=== PATIENT | male | born 1945 | race Caucasian/White ===

== ENCOUNTER 2024-07-31 10:47 | Outpatient (AMB) | payer MEDICARE, SELFPAY ==
--- NOTE | 2024-07-31 10:51 | MHC.PC.OV ---
Vital Signs 07/31/24 11:05 07/31/24 11:37 Height 5 ft 9 in Weight 198 lb 8 oz BMI 29.3 BP 155/78 H 146/70 H Blood Pressure Location Rt brachial Lt brachial Position Sitting Sitting Respiration 16 Pulse 55 56 Pulse Source Pulse Oximeter Temp 98.1 F Temp Source Oral Pulse Oximetry (%) 99 Oxygen Delivery Method Room Air Intake Visit Reasons: [employer]- HTN med Intake Note: patient here for new patient visit. patient needs HTN medication Special Client Bus Driver Required: No Accompanied by: Spouse Allergies lisinopril Allergy (Intermediate, Verified 08/07/24 10:03) caugh Penicillins Allergy (Intermediate, Verified 08/07/24 10:03) Swelling Tobacco use date assessed: 07/31/24 Fall risk assessment: No Falls in past year Last assessed Fall Risk: 07/31/24 Dental Screening Dental Screen Date: 07/31/24 Did you have a dental visit in the last 12 months?: Yes Did you have a dental problem in the last 6 months where you did not have access to dental care?: No Was dental information given to patient?: Patient has dentist HPI HPI Comments History of Present Illness Details 79-year-old male, accompanied by his , presents to establish care. He admits to taking his medications as prescribed without adverse reactions. He brought a log of his home blood pressure readings in the last 4 days, which are between 118-121/48-54. Prior PCP? - [facility] Last office visit - Med review 05/2024 Last CPE - Over a year Last labs - He had CBC and CMP done in 02/24/2024 (he brought a copy which are reviewed/unremarkable, except slightly elevated glucose) Acute issue(s) - None Past Medical History - HTN, HLD, aortic root aneurysm, CVA (09/16/2023), bilat corotid stenosis, heart murmur, arthritis right hand, prostate cancer, myopia, cataract both eyes Surgical History - Right carotid endarterectomy, left hand surgery (left 4th digit fx repair and left hand dupuytren contraction), prostatectomy 2007, cataract removal with insertion of prosthetic lens Family History - Dad: Hypertension, Parkinson disease, mental illness - Mom: Cardiovascular disease, hypertension, diabetes, hyperlipidemia - PGF: Cardiovascular disease Social History - Nonsmoker. Does not vape. Drinks 2 glasses of wine daily. Denies recreational drug use - Has been making healthy dietary choices. Exercises routinely. Generally sleep well Health maintenance - Last eye exam was in 04/[address] Nice. He will sign a release for his PCP to obtain his ophthalmology record - Last dental visit was over a year ago; encouraged to schedule an appointment with his dentist for routine dental care. - He notes that his last Tdap was 2 years ago - He notes that he is up-to-date on the shingle and pneumonia vaccines - He notes that he is up-to-date on the flu vaccine - Last colonoscopy was in 04/25/2007: normal, recommendation to repeat in 10 years. Last Cologuard was 2 years ago: normal. Colonoscopy ordered as requested Specialists Dr. Cook, [facility] Cardiology Dr. Meng, [facility] Vascular Surgery [facility] Medical History (Updated 08/07/24 @ 10:05 by Janelle Correa CNP) Left hand fracture Schatzki's ring Prostate cancer History of gastroesophageal reflux (GERD) Arthritis Heart disease Stroke (cerebrum) High cholesterol High blood pressure Surgical History (Updated 07/31/24 @ 11:29 by Jessie Zaragoza MA) H/O cataract removal with insertion of prosthetic lens History of prostatectomy History of carotid endarterectomy Family History (Updated 07/31/24 @ 11:45 by Jessie Zaragoza MA) Brother Asthma Father High blood pressure FH: mental illness Parkinson disease Mother High blood pressure High cholesterol Diabetes Cardiovascular disease Paternal Grandfather Cardiovascular disease Social History Housing: House Patient Tobacco Use Status: Never used Tobacco e-Cigarette/Vaping Use: Never Used Second Hand Smoke Exposure: No service: No Current occupational status: retired Current occupational exposures/hazards: No Cognitive needs: No Hearing needs: No Vision needs: Yes Questionnaire PHQ-9 Over the last 2 weeks, how often have you been bothered by any of the following problems? 1. Little interest or pleasure in doing things: not at all 2. Feeling down, depressed, or hopeless: not at all 3. Trouble falling or staying asleep, or sleeping too much: several days 4. Feeling tired or having little energy: not at all 5. Poor appetite or overeating: not at all 6. Feeling bad about yourself - or that you are a failure or have let yourself or your family down: not at all 7. Trouble concentrating on things, such as reading the newspaper or watching television: not at all 8. Moving or speaking so slowly that other people could have noticed. Or the opposite - being so fidgety or restless that you have been moving around a lot more than usual: not at all 9. Thoughts that you would be better off or of hurting yourself in some way: not at all Total score: 1 Depression Screening Interpretation: Negative Depression Screening Done: Yes 69847 - PHQ-9 Billing: Yes Source: Developed by Drs. Erasmo Oliva, Kristi Herrera, Brice Banks and colleagues, with an educational wendy from [employer]. Thrive Questionnaire Date Thrive assessed: 07/31/24 I am a: Patient What is your living situation today?: I have a steady place to live Within the past 12 months, did the food you bought not last and you didn't have the money to get more?: Sometimes True Within the past 12 months, did you worry whether your food would run out before you got money to buy more?: Never true Do you have trouble paying for medicines?: No Do you have trouble getting transportation to medical appointments?: No Do you have trouble paying your heating and electricity bill?: No Do you have trouble taking care of your child, family member or friend?: No Do you have trouble with day-to-day activities such as bathing, preparing meals, shopping, managing finances, etc.?: No Are you currently unemployed and looking for a job?: No Are you interested in more education?: Yes Please select the resources that you would like help with: None Currently or been in a relationship where the following occur: No concerns reported THRIVE Score: 1 AUDIT C Alcohol Use Questionnaire (AUDIT-C) 1. How often do you have a drink containing alcohol?: 4 or more times a week 2. How many drinks containing alcohol do you have on a typical day when you are drinking?: 1 or 2 3. How often do you have six or more drinks on one occasion?: Never Total Score: 4 Score Reviewed/Action Taken: Yes MARCELINO-7 AMB Questionnaire MARCELINO-7 Date MARCELINO - 7 assessed: 07/31/24 Feeling nervous, anxious, or on edge: 0 = Not at all Not being able to stop or control worryin = Not at all Worrying too much about different things: 0 = Not at all Trouble relaxin = Not at all Being so restless that it is hard to sit still: 0 = Not at all Becoming easily annoyed or irritable: 1 = Several days Feeling afraid as if something awful might happen: 0 = Not at all Total MARCELINO-7 score (0-4 normal; 5-9 mild; 10-14 moderate; 15-21 severe): 1 Source: Developed by Drs. Erasmo Oliva, Kristi Herrera, Brice Banks and colleagues, with an educational wendy from [employer]. MARCELINO-7 Assessment Billing MARCELINO-7 Assessment Tool: MARCELINO-7 Assessment 91560 Review of Systems Const Details: Const Denies chills, Denies fatigue, Denies fever(s), Denies headache(s) and Denies weakness ENT Denies dizziness and Denies headache(s) Card Denies chest pain, Denies lightheadedness, Denies dyspnea and Denies other (Palpitations) Resp Denies cough, Denies dyspnea, Denies wheezing and Denies other ( shortness of breath) GI Denies abdominal pain, Denies melena, Denies hematochezia, Denies change in bowel habits, Denies dyspepsia and Denies nausea Denies hematuria and Denies dysuria Musc Denies abnormal gait, Denies myalgias, Denies arthralgias, Denies numbness and Denies tingling Skin/Breast Denies rash, Denies unusual bruising and Denies wounds Neuro Denies abnormal gait, Denies dizziness, Denies headache(s), Denies memory loss, Denies numbness, Denies Sensory deficit (Neuro), Denies tingling and Denies weakness Psych Denies anxiety, Denies depression, Denies memory loss Endo Denies cold intolerance, Denies fatigue, Denies heat intolerance, Denies polydipsia and Denies polyuria Aller/Immun Denies wheezing Physical exam (Primary Care) Vital Signs: Last Vital Signs Temp 98.1 F 07/31/24 11:05 Pulse 56 07/31/24 11:37 Resp 16 07/31/24 11:05 BP 146/70 H 07/31/24 11:37 Pulse Ox 99 07/31/24 11:05 Oxygen Delivery Method Room Air 07/31/24 11:05 BMI result Body Mass Index 29.3 Tobacco/Smoking Status: Tobacco use Status Tobacco use date assessed 07/31/24 07/31/24 11:05 Patient Tobacco Use Status Never used Tobacco 07/31/24 11:05 e-Cigarette/Vaping Use Never Used 07/31/24 11:05 PHQ-9: PHQ-9 Score PHQ-9: Total score 1 08/06/24 16:01 Depression Screening Interpretation: Negative Thrive Assessment: Date of Thrive Assessment Date Thrive assessed 07/31/24 07/31/24 10:53 Currently or been in a relationship where the following occur: No concerns reported Const Other: General: no acute distress and well developed Nutritional Appearance: well nourished Orientation/consciousness: patient oriented x3 HENMT Head: Yes normocephalic and Yes atraumatic Eyes General: appearance normal, both eyes and all related structures Pupils: Equal, round and reactive pupils present EOM: EOMs intact bilaterally Resp Effort & Inspection: normal respiratory effort Auscultation: clear to auscultation bilaterally Cardio Rate: regular rate Rhythm: regular rhythm Heart sounds: S1 normal heart sound present, S2 normal heart sound present, no gallops, positive murmurs and no rubs GI Palpation (GI): No Abdominal aortic bruit present, Soft to palpation, nontender, No hepatosplenomegaly present and No Rebound tenderness present Auscultation: normal bowel sounds General: Yes no CVA tenderness Back/Spine/Pelvis Back: no CVA tenderness Cervical Spine: cervical ROM normal and No Cervical spine tenderness Thoracic/Lumbar Spine: thoraco-lumbar ROM normal, No pain with thoraco-lumbar ROM, No thoracic spinal tenderness and No lumbar spinal tenderness Extrem General: Yes normal to inspection, No edema and No calf tenderness Skin General: warm and dry. Normal skin color. Normal skin turgor Lesions: no lesions Rashes: no rashes Trauma: no lacerations or abrasions Wounds: no wounds Nails: normal Neuro General: patient oriented x3, gait normal and no focal neuro deficit Cranial nerves: Yes Equal, round and reactive pupils present Cognition (Neuro): normal cognition Gait exam (Neuro): Normal gait present Sensory Exam: No Sensory deficit (Neuro) Psych Appearance: grossly normal Affect: normal affect Attitude: cooperative Thought process: Normal thought process present Coding Level of Care Code New Pt Level 4 (48830) Diagnoses High blood pressure I10 Heart disease I51.9 Colon cancer screening Z12.11 Myopia of both eyes H52.13 Laboratory tests ordered as part of a complete physical exam (CPE) Z00.00 Additional Codes MARCELINO-7 Assessment Billing - MARCELINO-7 Assessment Tool: MARCELINO-7 Assessment 29144 ([id number]) PHQ-9 - 55238 - PHQ-9 Billing: Yes ([id number]) Assessment & Plan Assessment & Plan (1) High blood pressure: Code(s): I10 - Essential (primary) hypertension Category: Medical Plan: Resting blood pressure is 146/70, above goal of less than 130/80. Heart rate is 56. His home blood pressure readings in the past 4 days between 118-121/48-54 Will increase losartan to 75 mg daily; advised to take as prescribed. Continue to take metoprolol and isosorbide mononitrate as prescribed. Routine exercise and low-sodium diet encouraged. Follow-up in 1 week for hypertension and labs reviewed. Return sooner with symptoms or concerns. Verbalized understanding and agreed with the plan. (2) Heart disease: Code(s): I51.9 - Heart disease, unspecified Category: Medical Plan: History of aortic root aneurysm, bilat corotid stenosis, murmur, and right carotid endarterectomy. Continue current treatment regimen. Followed by Cardiology and vascular surgery. (3) Colon cancer screening: Code(s): Z12.11 - Encounter for screening for malignant neoplasm of colon Category: Medical Plan: Last colonoscopy was in 04/25/2007: normal, recommendation to repeat in 10 years. Last Cologuard was 2 years ago: normal. Colonoscopy ordered as requested. (4) Myopia of both eyes: Code(s): H52.13 - Myopia, bilateral Category: Medical Plan: He wears prescription glasses. Eye exam is up-to-date. (5) Laboratory tests ordered as part of a complete physical exam (CPE): Code(s): Z00.00 - Encounter for general adult medical examination without abnormal findings Category: Medical Plan: Fasting labs ordered as part of a complete physical exam. Advised to fast for at least 10 hours before getting labs drawn. May drink water Verbalized understanding and agreed with treatment plan. Orders: Orders Complete Blood Count Auto Diff 08/01/24 Z00.00 - Encounter for general adult medical examination without abnormal findings Comprehensive [place]. Panel Fast 08/01/24 Z00.00 - Encounter for general adult medical examination without abnormal findings Lipid Panel 08/01/24 Z00.00 - Encounter for general adult medical examination without abnormal findings PSA, Ultra Sensitive 08/01/24 Z00.00 - Encounter for general adult medical examination without abnormal findings Microalbumin, Random (w Creat) 08/01/24 Z00.00 - Encounter for general adult medical examination without abnormal findings TSH reflex Free T4 08/01/24 Z00.00 - Encounter for general adult medical examination without abnormal findings UA CC w/rflx Micro + Cult 08/01/24 Z00.00 - Encounter for general adult medical examination without abnormal findings Vitamin D 25-OH Total 08/01/24 Z00.00 - Encounter for general adult medical examination without abnormal findings Referrals Gastroenterology Referral Z12.11 - Encounter for screening for malignant neoplasm of colon Medications: New losartan Take with losartan 50 mg daily to equal 75 mg daily 25 mg PO DAILY 30 tabs 3RF 30 days
[2024-07-31 11:05] VITALS: BP 155/78; PULSE 55; RESP 16; TEMP 36.7; O2SAT 99; BMI 29.3
[2024-07-31 11:37] VITALS: BP 146/70; PULSE 56
--- OUTSIDE RECORDS SUMMARY | 2024-07-31 12:48 | XMS_ITS | Clinical Summary ---
Author Organization [facility] [address] [facility] Address [address] [place] [address] Phone Care Team Providers Care Chinese Medicine Practitioner Name Role Phone Ingrid Dia MD Primary Care Provider [phone] Allergies Active Allergy Reactions Criticality Noted Date Comments Ketoconazole 05/02/2024 Shampoo, caused ear lobes and eyelids to swell. Lisinopril Cough 05/19/2023 Penicillins 12/19/2006 rash joint swelling Medications nitroglycerin (NITROSTAT) 0.[address] 1 tablet (0.4 mg total) under the tongue every 5 (five) minutes if needed for chest pain. 10/26/2023 11/20/19 25 Active aspirin 81 mg EC tablet 1 TABLET DAILY Active atorvastatin (LIPITOR) 80 mg tablet Take 1 tablet (80 mg total) by mouth 1 (one) time each day. 90 each 1 02/24/2024 08/23/19 25 Active isosorbide mononitrate (IMDUR) 30 mg 24 hr tablet Take 1 tablet (30 mg total) by mouth 1 (one) time each day. 90 each 1 02/24/2024 08/23/19 25 Active metoprolol tartrate (LOPRESSOR) 25 mg tablet Take 1 tablet (25 mg total) by mouth 2 (two) times a day. 180 each 1 02/24/2024 08/23/19 25 Active pantoprazole (PROTONIX) 40 mg EC tablet Take 1 tablet (40 mg total) by mouth 1 (one) time each day before breakfast. Do not crush, chew, or split. 90 each 1 02/24/2024 08/23/19 25 Active losartan (Cozaar) 50 mg tablet Take 1 tablet (50 mg total) by mouth 1 (one) time each day. 90 each 1 02/24/2024 08/23/19 25 Active Active Problems Problem Noted Date Diagnosed Date Blood loss anemia 10/20/2023 Carotid artery stenosis 10/20/2023 CVA (cerebral vascular accident) (CMS/HCC V24, C MS/HCC V28) 10/20/2023 Overview (01/23/2024): Last Assessment & Plan: Seems as though his stroke coincides very well to the territory of his carotid stenosis. Low suspicion for cardioembolic phenomenon. Will review neurology's notes to determine long-term preventative therapy-specifically dual antiplatelet therapy versus monotherapy with Plavix versus monotherapy with aspirin. For now, continue low-dose Xarelto and aspirin. CAD (coronary artery disease) 06/13/2023 Overview (01/23/2024): - CCS class I stable anginal symptoms at baseline - Abnormal nuclear stress test in October 2021 with small, mild region of ischemia at the apical inferior wall - Most recent echocardiogram during hospitalization at [facility] in September 2023 showed normal left ventricular size, regional wall motion, and systolic function, ejection fraction 65 to 70%, normal left ventricular diastolic function, mild aortic stenosis with dimensionless index of 0.42 and mean gradient 10 mmHg, trace AI, mild aortic root dilatation at 4.3 cm, mildly dilated right ventricle with normal systolic function, likely normal pulmonary artery systolic pressure at 24 mmHg plus right atrial pressure Last Assessment & Plan: In light of recent stroke, I escalated lipid-lowering therapy. I switched him from simvastatin to atorvastatin and increase the dose to 80 mg at bedtime. Neurology to determine whether or not he will need long-term dual antiplatelet therapy versus monotherapy with Plavix- I would suspect this to be the case since he had the stroke on baby aspirin. With regards to his anginal episode, I again reviewed the pathophysiology of coronary disease highlighting the differences between stable anginal syndromes and unstable anginal symptoms. It does indeed seem like he had particularly pronounced case of postprandial angina which is a variant of stable angina. At the time, he also mentioned that his blood pressure was through the roof. Since then however with even more strenuous exertion, he has not had recurrence. I do not think this necessarily represents progression of coronary disease. At this point, I recommended he continue to gradually escalated exercise routine and be mindful of his symptoms. He will let me know if he has any recurrent anginal symptoms. For now I will continue current antianginal therapy with metoprolol, Imdur, baby aspirin and high-dose atorvastatin. I have refilled his sublingual nitro as needed for stable anginal symptoms. Assessment & Plan (05/02/2024 11:42 AM EST): Patient LDL at target. Should continue on high-dose atorvastatin in addition to the beta-jacklyn, Imdur, and nitro sublingual tablet as needed. Patient reports some increased chest discomfort with vigorous exercise while he is at the gym. I would like to evaluate this with a stress echocardiogram. Instructed to call 911 or go to the emergency room should the patient begin to experience chest pain or pressure lasting greater than 10 minutes does not resolve with rest. Orders: ECG 12 lead Stress echocardiogram (TTE) exercise with PRN contrast, bubble, strain, and 3D order panel; Future Lyme disease 05/23/2014 Ocular migraine 11/09/2010 Overweight 09/26/2008 Lumbago 07/30/2008 Essential hypertension, benign 12/19/2006 Overview (01/23/2024): Last Assessment & Plan: Generally has been very well-controlled at home on current regimen of metoprolol, Imdur, losartan. Continue. Assessment & Plan (05/02/2024 11:42 AM EST): Patient has blood pressure log with him that he takes every day. This reveals that his blood pressures are in control at home typically gets systolic values in the 120s or 130s over 80s. Does have the occasional measurement of the systolic in the 140s and diastolic in the low 90s. I have asked that if he consistently gets these sort of measurements then we can increase his ARB. At this point I am not going to make any medication adjustments to his blood pressure regime. Educated on the importance of diet lifestyle to help further assist in reducing blood pressure. The patient was encouraged to follow low-salt low-fat diet, make purposeful strides towards weight loss, and engage in routine aerobic exercise as tolerated. Pure hypercholesterolemia 12/19/2006 Overview (01/23/2024): Last Assessment & Plan: Switched him to atorvastatin increased dose to 80 mg at bedtime. I have ordered repeat lipids and LFTs to be checked in a couple of months. Assessment & Plan (05/02/2024 11:42 AM EST): Continue on current high-dose statin. Encounters Date Type Department Care Team Description 06/06/2024 Telephone [facility] Cardiology [facility] [address] [place] [address] Raimundo Long NP Results ([facility] results ) 05/15/2024 12:30 PM EST Ancillary Procedure [facility] Cardiology [facility] [address] [place] [address] Coronary artery disease, unspecified vessel or lesion type, unspecified whether angina present, unspecified whether koyuk or transplanted heart 05/10/2024 Telephone [facility] Cardiology [facility] [address] [place] [address] Leslie Oquendo [place] CoQ10 05/02/2024 10:40 AM EST Office Visit [facility] Cardiology [facility] [address] [place] [address] Raimundo Long NP Coronary artery disease, unspecified vessel or lesion type, unspecified whether angina present, unspecified whether koy[place] or transplanted heart (Primary Dx); Essential hypertension, benign; Pure hypercholesterolemia from Last 3 Months Immunizations Name Administration Dates Next Due COVID-19 (Moderna/Spikevax) 12yo and older 02/07/2023 Influenza Quadravalent, MDCK , 0.5ml, with preservative (Flucelvax) 6mo and older 12/27/2016 Influenza trivalent, 0.5mL ( Fluad) 65yo and older 11/22/2022,12/29/2021,12/18/2020,01/01,12/12/2018,12/27/2016,02/04/2016 ,02/28/2015,01/24/2014,02/23/2013,12/11,01/28/2011,02/19/2010, 9 Influenza trivalent, 0.5mL, preservative free (Fluarix; FluLaval; Fluzone) ages 6mo and older (Afluria) 3 years and older 02/08/2008,03/20/2007 Pfizer (ages 12 & older) Biv alent, COVID-19 08/02/2022,12/16/2021 Pfizer SARS-CoV-2 COVID-19, mRNA, LNP-S, preservative free 12/16/2023,07/09/2021,01/03/2021,06/15,05/25/2020 Pneumococcal conjugate 13 va lent (Prevnar 13, PCV13) 2mo and older 08/12/2015 Pneumococcal conjugate 20 va lent (Prevnar 20, PCV 20) 2mo and older 06/30/2023 Pneumococcal polysaccharide 23 valent (Pneumovax 23) 2yo and older 01/28/2011 RSV, bivalent, protein subun it RSVpreF, 0.5mL, Preservative Free (Arexvy) 60yo and older 11/29/2022 Td Tetanus diptheria (Tdvax) 7yo and older 07/24/2020 Tdap Tetanus diptheria acell ular pertussis (Boostrix; Adacel) 7yo and older 06/06/2012 Zoster Live 12/29/2011 Zoster recombinant (Shingrix ) 19yo and older 02/02/2022,05/29/2019 Surgical History Surgery Date Site/Laterality Comments COLONOSCOPY 04/25/07 PROCEDURE: HISTORICAL COLONOSCOPY; COMMENT: diverticulosis; repeat in ten years Medical History Medical History Date Comments Pure hypercholesterolemia 12/19/2006 DX:Pur e hypercholesterolemia Malignant neoplasm of prosta te ([facility] V24, [facility] V28) 12/19/2006 DX:Malignant neoplasm of pr ostate (HCC); COMMENT: georgette 7, s/p radical prostatectomy 2006 Essential hypertension, benign 12/19/2006 D X:Essential hypertension, benign Colon cancer screening 08/12/2015 DX:Colon cancer screening Family history of malignant melanoma of skin 08/12/2015 DX:Family history of maligna nt melanoma of skin Dysphagia DX:Dysphagia Cough DX:Cough Abnormal barium swallow DX:Abnor mal barium swallow Schatzki's ring of distal esophagus DX:Schatzki's ring of distal esophagus Family History Medical History Relation Name Comments Asthma Brother 1 Brain cancer Brother 1 Heart attack Brother 1 Squamous cell carcinoma Brother 1 Stroke Brother 1 No Known Problems Brother 2 No Known Problems Daughter Parkinson's Disease Father and emph ysema at 79 Other: heart attack Maternal Grandfather -50s-shoveled snow Other: Other Maternal Grandmother - age 83 CABG Mother age 70 Diabetes Mother Hypertension Mother Melanoma Mother Other: basal cell Mother Other: Other Other 2 maternal uncl es -90s ? causes Dementia Paternal Grandfather at 97 Other: influenza Paternal Grandmother d in her mid 30s Other cancer Sister 1 pancreatic canc er; stroke - age 60 Stroke Sister 1 No Known Problems Sister 2 No Known Problems Son Relation Name Status Comments Brother 1 Brother 2 Alive Daughter Alive Father Maternal Grandfather Maternal Grandmother Mother Other Paternal Grandfather Paternal Grandmother Sister 1 Sister 2 Alive Son Alive Social History Tobacco Use Types Packs/Day Years Used Date Smoking Tobacco: Never Smokeless Tobacco: Never Alcohol Use Standard Drinks/Week Comments Yes 12 (1 standard drink = 0.6 oz pu re alcohol) 1-2 glasses of wine daily Housing Instability Answer Date Recorde d Are you worried that in the next 2 months you may not have stable housing? No 02/21/2024 Food Access & Nutrition Answer Date Rec orded Do you have access to a vari ety of food including fruits and vegetables? Yes 02/21/2024 Access to Healthcare Answer Date Record ed Within the last 3 months, ho w many times did you visit the emergency department for your medical care? 0 02/21/2024 Health Literacy Answer Date Recorded How often do you need to hav e someone help you when you read instructions, pamphlets, or other written material from your doctor or pharmacy? Never 02/21/2024 Caregiver: How often do you need to have someone help you when you read instructions, pamphlets, or other written material from your doctor or pharmacy? Not on file 02/21/2024 Financial Risk Answer Date Recorded How hard is it for you to pa y for the very basics like food, housing, medical care, and air conditioning / heating? Not very hard 02/21/2024 Transportation Answer Date Recorded Has the lack of transportati on kept you from meetings, work, or from getting things needed for daily living? No Has the lack of transportati on kept you from medical appointments or from getting medications? No 02/21/2024 Social Isolation Answer Date Recorded How often do you feel lonely or isolated from th ose around you? Never 02/21/2024 Food Risk Answer Date Recorded Within the past 12 months we worried whether our food would run out before we got money to buy more. Never true 02/21/2024 Within the past 12 months th e food we bought just didn't last and we didn't have money to get more. Never true 02/21/2024 Dependent Care Answer Date Recorded Do you need help finding or paying for care for your loved ones. For example, children's ministry director or elderly care for an older adult? No 02/21/2024 Education Answer Date Recorded Do you think completing more education or training, like finishing a GED, going to college, or learning a trade, would be helpful for you? No 02/21/2024 Employment and Income Answer Date Recor ded During the last four weeks, have you been actively looking for work? No 02/21/2024 Living Situation Answer Date Recorded What is your living situation? 1 04/22/2023 Sex and Gender Information Value Date Recorded Sex Assigned at Male 05/16/2024 11:20 PM EST Legal Sex Male 2:21 PM EST Gender Identity Male 05/16/2024 11:20 PM EST Sexual Orientation Straight 05/16/2024 11 :20 PM EST Occupation Industry Job Start Date Job End Date RETIRED Not on file Not on file Not on file Obstetrics History Last Filed Vital Signs Vital Sign Reading Time Taken Comments Blood Pressure 130/70 05/15/2024 12:47 PM EST Pulse 55 05/02/2024 10:38 AM EST Temperature 37.2 ??C (98.9 ??F) 02/24/2024 2:16 PM ES T Respiratory Rate - - Oxygen Saturation 99% 05/02/2024 10:38 AM EST Inhaled Oxygen Concentration - - Weight 90.3 kg (199 lb) 05/15/2024 12:47 PM EST Height 175.3 cm (5' 9 ) 05/15/2024 12:47 PM EST Body Mass Index 29.39 05/15/2024 12:47 PM EST Plan of Treatment Upcoming Encounters Date Type Department Care Team (Late st Contact Info) Description 08/06/2024 10:40 AM EDT Office Visit [facility] [address] [facility] [address] [place] [address] Raimundo Long NP [address] [place], [place] [id number] Health Maintenance Due Date Last Done Comments Colorectal Cancer Screening: Stool Based Tests (FOBT/FIT) 03/20/2022 COVID-19 Vaccine ( season) 2024 12/16/2023, 02/07/2023, 08/02/2022, Additional history exists Depression Screening 02/20/2025 02/21/2024, 10/11/19 Falls Risk Assessment 02/20/2025 02/21/2024 Medicare Annual Wellness Visit 02/20/2025 02/21/2024 Social Influencers of Health Screening 02/20/2025 02/21/2024 Hypertension/CHF/CAD Annual BMP Blood Test 02/23/2025 02/24/2024, 01/09/2024, 01/09/2024 Cholesterol Screening (Lipid Panel) 01/08/2029 01/09/2024, 01/09/2024 DTaP,Tdap,and Td Vaccines (3 - Td or Tdap) 07/24/2030 07/24/2020, 06/06/2012 Hepatitis C Screening Completed 05/22/2013 Zoster Vaccines Completed 02/02/2022, 05/12, 12/29/2011 RSV Immunization Adult Patients Completed 11/29/2022 Pneumococcal Vaccine: 50+ Years Completed 06/30/2023, 08/12/2015, 01/28/2011 Influenza Vaccine Completed 12/22/2023, , 12/29/2021, Additional history exists HIB Vaccines Aged Out No longer eligi ble based on patient's age to complete this topic HPV Vaccines Aged Out No longer eligi ble based on patient's age to complete this topic Hepatitis A Vaccines Aged Out No long er eligible based on patient's age to complete this topic Hepatitis B Vaccines Aged Out No long er eligible based on patient's age to complete this topic IPV Vaccines Aged Out No longer eligi ble based on patient's age to complete this topic MMR Vaccines Aged Out No longer eligi ble based on patient's age to complete this topic Meningococcal ACWY Vaccine Aged Out N o longer eligible based on patient's age to complete this topic Meningococcal B Vaccine Aged Out No l onger eligible based on patient's age to complete this topic RSV Immunization Patients Under 20 months Aged Out No longer eligible based on patient's age to complete this topic Varicella Vaccines Aged Out No longer eligible based on patient's age to complete this topic Procedures Procedure Name Priority Date/Time Associated Diagnosis Comments STRESS ECHOCARDIOGRAM EXERCISE WITH CONTRAST Routine 05/15/2024 1:28 PM EST Coronary artery disease, unspecified vessel or lesion type, unspecified whether angina present, unspecified whether koy[place] or transplanted heart ECG 12-LEAD Routine 05/02/2024 11:26 AM EST Coronary artery disease, unspecified vessel or lesion type, unspecified whether angina present, unspecified whether [place] or transplanted heart COMPREHENSIVE METABOLIC PANEL Routine 02/24/2024 3:20 PM EST Essential hypertension, benign LIPID PANEL Routine 01/09/2024 DEPRESSION SCREENING Routine 10/11/2023 HEPATITIS C SCREENING Routine 05/22/2013 from Last 3 Months or Most Recently Relevant to Health Maintenance Results * STRESS ECHOCARDIOGRAM EXERCISE WITH CONTRAST (05/15/2024 1:28 PM EST) Aortic Sinus Valsalva 4.2 cm CV PACS STRESS LVOT Diameter 2.1 cm CV PAC S STRESS LVOT Area 3.5 cm2 CV PACS STRESS BSA 2.1 m2 CV PACS STRESS Target HR 120 bpm CV PACS STRESS Baseline HR 55 bpm CV PACS STRESS Peak HR 115 bpm CV PACS STRESS Estimated workload 8.6 METS CV PACS STRESS Percent HR 82 % CV PACS STRESS Exercise/injec tion duration (min) 6 min CV PACS STRESS Exercise/injec tion duration (sec) 50 sec CV PACS STRESS Angina Index 1 CV PACS STRESS Max HR Percent 81 % CV PA CS STRESS Baseline SBP 130 mmHg CV PACS STRESS Baseline DBP 80 mmHg CV PACS STRESS Peak SBP 162 mmHg CV PACS STRESS Peak DBP 92 mmHg CV PACS STRESS Rate Pressure Product 18,630.0 mmHg*bpm CV PACS STRESS Anatomical Region Laterality Modality Ultrasound Narrative 05/24/2024 3:32 PM EST ?Resting echocardiogram showed normal left ventricular systolic function and regional wall motion with an ejection fraction of 60 to 65%. ??The aortic root was dilated at 4.3 cm. ?Exercise stress test was performed. ??Patient exercised for 6 minutes and 50 seconds to only 82% of max predicted heart rate achieving 8.6 MET workload. ??Exercise capacity was above average for age and gender. Normal blood pressure and heart rate response to exercise. ?There was ECG evidence of ischemia even at submaximal heart rate. ?There was no echocardiographic evidence of ischemia or infarction with normal augmentation of all wall segments with stress and no LV dilatation with stress. ECG positive but echocardiographically negative exercise stress test. ?? There was no echocardiographic evidence of ischemia or infarction at the level of exertion achieved. ??However, technically this was a submaximal stress test as the patient only achieved 82% of max predicted heart rate. ?? Therefore, it may lack the sensitivity to detect ischemia. Left Ventricle Left ventricle cavity size is normal. There is mild concentric hypertrophy. Systolic function is normal with an ejection fraction of 60-65%. There are no regional LV wall motion abnormalities. Ascending Aorta The Sinus of Valsalva is dilated (4.2 cm). Study Details Overall the study quality was technically difficult. Definity contrast was given to enhance imaging. Study was difficult due to: poor endocardial visualization. Stress Findings A Tremaine protocol stress test was performed. Overall, the patient's exercise capacity was above average. The patient reached stage 3. Total stress time was 6 min and 50 sec. The patient experienced non-limiting angina during the test. The test was stopped because the patient experienced fatigue. Blood pressure demonstrated a normal response. Heart rate demonstrated a blunted response. Onset of symptoms occurred at Stage 2 of the protocol. The patient reported chest discomfort during the stress test. ECG 79-year-old male with a history of coronary artery disease, hypertension, hyperlipidemia into rule out ischemia. Patient on metoprolol and isosorbide. Baseline EKG: Sinus bradycardia There is depression noted to ST segment downward-sloping (II, III, V4, V5 and V6) during stress. There were no arrhythmias during recovery. ST changes returned to baseline during recovery. The result of the stress ECG was positive for ischemia. Echo Post Stress Left ventricular cavity size decreased from baseline. Left ventricular systolic function improved from baseline. Normal wall motion, unchanged from baseline. Nuclear Measurements Positive ECG portion of exercise stress echocardiogram. Negative echocardiographic evidence of ischemia or infarction. Raimundo Long NP CV ECHO PROCEDURES Final Result * ECG 12 lead (05/02/2024 11:26 AM EST) Ventricular Rate ECG 55 BPM GEMUSE Atrial Rate 55 BPM GEMUSE P-R Interval 160 ms GEMUSE QRS Duration 78 ms GEMUSE Q-T Interval 426 ms GEMUSE QTc 407 ms GEMUSE P Wave [place] 47 degrees GEMUSE R [place] 12 degrees GEMUSE T [place] 53 degrees GEMUSE ECG Interpretation Sinus bradycardia Otherwise normal ECG When compared with ECG of 31-AUG-2017 11:24, No significant change was found Confirmed by JAY LOPEZ ([id number]) on 05/07/2024 11:33:03 AM GEMUSE 05/02/2024 10:5 2 AM EST 05/07/2024 11:33 AM EST Raimundo Long NP ECG ORDERABLES Edited Result - Final GEMUSE * (ABNORMAL) Comprehensive metabolic panel (02/24/2024 3:20 PM EST) [facility] Signature Sodium 140 133 - 145 mmol/L LAB CHEMISTRY METHOD 02/24/2024 6:28 PM [facility] Potassium 4.2 3.5 - 5.5 mmol/L LAB CHEMISTRY METHOD 02/24/2024 6:28 PM [facility] Chloride 108 96 - 110 mmol/L LAB CHEMISTRY METHOD 02/24/2024 6:28 PM [facility] CO2 27 21 - 32 mmol/L LAB CHEMISTRY METHOD 02/24/2024 6:28 PM [facility] Anion Gap 5 3 - 11 LAB CHEMISTRY METHOD 02/24/2024 6:28 PM [facility] Glucose 113(H) 70 - 100 mg/dL LAB CHEMISTRY METHOD 02/24/2024 6:28 PM [facility] BUN 17 5 - 25 mg/dL LAB CHEMISTRY METHOD 02/24/2024 6:28 PM [facility] Creatinine 1.07 0.70 - 1.30 mg/dL LAB CHEMISTRY METHOD 02/24/2024 6:28 PM [facility] eGFR 71 >=60 mL/min/1. 73m2 LAB CHEMISTRY METHOD 02/24/2024 6:28 PM [facility] Comment:Calculation based on the??Chronic Kidney Disease Epidemiology Collaboration (CKD-EPI) equation refit??without adjustment for race. BUN/Creatinine Ratio 15.9 LAB CHEMISTRY METHOD 02/24/2024 6:28 PM [facility] Calcium 9.4 8.5 - 10.5 mg/dL LAB CHEMISTRY METHOD 02/24/2024 6:28 PM [facility] AST (SGOT) 24 10 - 42 unit/L LAB CHEMISTRY METHOD 02/24/2024 6:28 PM [facility] ALT (SGPT) 43 10 - 60 unit/L LAB CHEMISTRY METHOD 02/24/2024 6:28 PM EST [facility] Alkaline Phosphatase 69 42 - 121 unit/L LAB CHEMISTRY METHOD 02/24/2024 6:28 PM EST [facility] Total Protein 6.9 6.0 - 8.0 g/dL LAB CHEMISTRY METHOD 02/24/2024 6:28 PM EST [facility] Albumin 4.5 3.2 - 5.0 g/dL LAB CHEMISTRY METHOD 02/24/2024 6:28 PM EST [facility] Total Bilirubin 1.1 0.0 - 1.4 mg/dL LAB CHEMISTRY METHOD 02/24/2024 6:28 PM EST [facility] Blood Venous blood specimen / Unknown Venipuncture / Unknown 02/24/2024 3:20 PM EST 02/24/2024 3:20 PM EST Macey PRESSLEY LAB BLOOD ORDERABLES Final Resul t [facility] [address] [place] [address], [place] [phone] * Lipid panel (01/09/2024) Pathologist [facility] LDL/HDL Ratio 2 0 - 4 Triglycerides 53 0 - 150 mg/dL Cholesterol 103 0 - 200 mg/dL HDL 45 >=40 mg/dL LDL Cholesterol 48 0 - 100 mg/dL Blood Venous blood specimen / Unknown Historical Provider LAB BLOOD ORDERABLES Megan l Result * Depression Screening (10/11/2023) Pathologist [facility] Depression Screening abstracted Historical Provider HEALTH MAINTENANCE Final Result * Hepatitis C Screening (05/22/2013) Pathologist [facility] Hepatitis C Screening abstracted Historical Provider HEALTH MAINTENANCE Final Result from Last 3 Months or Most Recently Relevant to Health Maintenance Insurance MEDICARE [facility] Care Teams Chinese Medicine Practitioner Relationship Specialty Start Date End Date Ingrid Dia MD PCP - General 09/26/23
== END 2024-07-31 11:46 | disposition home or self-care (01) ==
LOC: HO.HMCFM 10:47
PROVIDERS: PCP Nurse Practitioner Family; Visit Provider Nurse Practitioner Family
DX: I10 Essential (primary) hypertension (principal); I51.9 Heart disease, unspecified; Z12.11 Encounter for screening for malignant neoplasm of colon; H52.13 Myopia, bilateral; Z00.00 Encounter for general adult medical examination without abnormal findings

== ENCOUNTER → 2024-07-31 10:47 | Outpatient (BNVA) | payer MEDICARE, SELFPAY | PROVIDERS: PCP Nurse Practitioner Family; Visit Provider Nurse Practitioner Family | DX: H52.13 Myopia, bilateral (principal); I11.9 Hypertensive heart disease without heart failure | CPT/HCPCS: 96127; 99202 ==

== ENCOUNTER 2024-08-01 09:18 | Outpatient (REF) | payer MEDICARE, SELFPAY ==
--- OUTSIDE RECORDS SUMMARY | 2024-08-01 10:12 | XMS_ITS | Clinical Summary ---
Author Organization [facility] [address] [facility] Address [address] [place] [address] Phone Care Team Providers Care Hebrew Cantor Name Role Phone Ingrid Dia MD Primary Care Provider [phone] Allergies Active Allergy Reactions Criticality Noted Date [...] - Most recent echocardiogram during hospitalization at [facility] in September 2023 showed normal left [...] Type Department Care Team Description 06/06/2024 Telephone [facility] Cardiology [facility] [address] [place] [address] Raimundo Long NP Results ([facility] results ) 05/15/2024 12:30 PM EST Ancillary Procedure [facility] Cardiology [facility] [address] [place] [address] Coronary artery disease, unspecified vessel or lesion type, unspecified whether angina present, unspecified whether [place] or transplanted heart 05/10/2024 Telephone [facility] Cardiology [facility] [address] [place] [address] Leslie Oquendo [place] CoQ10 from Last 3 Months Immunizations Name Administration [...] e hypercholesterolemia Malignant neoplasm of prosta te (CMS/HCC V24, CMS/HCC V28) 12/19/2006 DX:Malignant neoplasm of pr ostate [...] Record ed Within the last 3 months, john henry many times did you visit the emergency [...] care for your loved ones. For example, childcare teacher or elderly care for an older adult? [...] Description 08/06/2024 10:40 AM EDT Office Visit [facility] - [facility] [address] [facility] [address] [place] [phone] Raimundo Long NP [address] [place] [address] Health Maintenance Due Date Last Done Comments [...] type, unspecified whether angina present, unspecified whether [place] or transplanted heart COMPREHENSIVE METABOLIC PANEL Routine [...] NP CV ECHO PROCEDURES Final Result * (ABNORMAL) Comprehensive metabolic panel (02/24/2024 3:20 PM EST) Pathologist [facility] Sodium 140 133 - 145 mmol/L LAB CHEMISTRY METHOD 02/24/2024 6:28 PM [facility] Potassium 4.2 3.5 - 5.5 mmol/L LAB CHEMISTRY METHOD 02/24/2024 6:28 PM [facility] Chloride 108 96 - 110 mmol/L LAB CHEMISTRY METHOD 02/24/2024 6:28 PM [facility] CO2 27 21 - 32 mmol/L LAB CHEMISTRY METHOD 02/24/2024 6:28 PM [facility] Anion Gap 5 3 - 11 LAB CHEMISTRY METHOD 02/24/2024 6:28 PM [facility] Glucose 113(H) 70 - 100 mg/dL LAB CHEMISTRY METHOD 02/24/2024 6:28 PM [facility] BUN 17 5 - 25 mg/dL LAB CHEMISTRY METHOD 02/24/2024 6:28 PM [facility] Creatinine 1.07 0.70 - 1.30 mg/dL LAB CHEMISTRY METHOD 02/24/2024 6:28 PM [facility] eGFR 71 >=60 mL/min/1. 73m2 LAB CHEMISTRY METHOD 02/24/2024 6:28 PM [facility] Comment:Calculation based on the??Chronic Kidney Disease Epidemiology Collaboration (CKD-EPI) equation refit??without adjustment for race. BUN/Creatinine Ratio .9 LAB CHEMISTRY METHOD 02/24/2024 6:28 PM [facility] Calcium 9.4 8.5 - 10.5 mg/dL LAB CHEMISTRY METHOD 02/24/2024 6:28 PM [facility] AST (SGOT) 24 10 - 42 unit/L LAB CHEMISTRY METHOD 02/24/2024 6:28 PM [facility] ALT (SGPT) 43 10 - 60 unit/L LAB CHEMISTRY METHOD 02/24/2024 6:28 PM [facility] Alkaline Phosphatase 69 42 - 121 unit/L LAB CHEMISTRY METHOD 02/24/2024 6:28 PM [facility] Total Protein 6.9 6.0 - 8.0 g/dL LAB CHEMISTRY METHOD 02/24/2024 6:28 PM [facility] Albumin 4.5 3.2 - 5.0 g/dL LAB CHEMISTRY METHOD 02/24/2024 6:28 PM [facility] Total Bilirubin 1.1 0.0 - 1.4 mg/dL LAB CHEMISTRY METHOD 02/24/2024 6:28 PM [facility] Blood Venous blood specimen / Unknown Venipuncture / Unknown 02/24/2024 3:20 PM EST 02/24/2024 3:20 PM EST Macey PRESSLEY LAB BLOOD ORDERABLES Final Resul t [facility] [address] [place] [address], * Lipid panel (01/09/2024) LDL/HDL Ratio 2 0 - 4 Triglycerides 53 0 - 150 mg/dL Cholesterol 103 0 - 200 mg/dL HDL 45 >=40 mg/dL LDL Cholesterol 48 0 - 100 mg/dL Blood Venous blood specimen / Unknown Historical Provider LAB BLOOD ORDERABLES Megan l Result * Depression Screening (10/11/2023) Depression Screening abstracted Historical Provider HEALTH MAINTENANCE Final Result * Hepatitis C Screening (05/22/2013) Hepatitis C Screening abstracted Historical Provider HEALTH MAINTENANCE Final Result from Last 3 Months or Most Recently Relevant to Health Maintenance Insurance MEDICARE [facility] Care Teams Hebrew Cantor Relationship Specialty Start Date End Date Ingrid Dia MD PCP - General 09/26/23
[2024-08-01 11:43] LABS: MANUAL DIFF FLAG NO
[2024-08-01 11:51] LABS: Basophils Percent Auto 0.4 % (0-2); Eosinophils Absolute Auto 0.2 X10*3/uL (0.0-0.4); Eosinophils Percent Auto 3.1 % (0-4); Hematocrit 44.2 % (42.0-52.0); Imm Gran Abs Auto 0.02 X10*3/uL (0.00-0.03); Imm Gran Pct Auto 0.4 % (0.0-0.4); Lymphocytes Absolute Auto 1.4 X10*3/uL (1.2-4.9); Lymphocytes Percent Auto 27.7 % (20-40); Mean Corpuscular HGB Conc 33.9 g/dl (31.0-36.0); Mean Corpuscular Hemoglobin 33.3 pg (27.0-33.0); Mean Corpuscular Volume 98.2 fL (80.0-98.0); Monocytes Absolute Auto 0.4 X10*3/uL (0.1-1.2); Monocytes Percent Auto 8.6 % (2-11); Neutrophils Percent Auto 59.8 % (45-73); Platelet Count 188 X10*3/uL (160-400); Red Cell Distribution Width 12.4 % (11.0-16.0); White Blood Count 5.1 X10*3/uL (4.8-10.8)
[2024-08-01 11:56] LABS: Appearance Urine Clear; Color Urine Yellow; Glucose Urine UA Negative (Negative); Leukocyte Esterase Urine Negative (Negative); Nitrite Urine Negative (Negative); Urine Blood Negative (Negative); Urine Ketones Negative (Negative); Urine Protein Trace mg/dL (Neg-Trace)
[2024-08-01 12:23] LABS: Alanine Aminotransferase 45 U/L (0-40); Albumin Level 4.6 g/dL (3.5-5.0); Alkaline Phosphatase 63 U/L (39-117); Anion Gap 12 (12-20); Aspartate Amino Transferase 32 U/L (5-37); Bilirubin Total 1.4 mg/dL (0.0-1.0); Blood Urea Nitrogen 16 mg/dL (9-16); Calcium 9.5 mg/dL (8.4-10.2); Carbon Dioxide 28 mmol/L (22-29); Chloride 106 mmol/L (96-108); Cholesterol 111 mg/dL (<200); Estimated Glomerular Filt Rate > 60; Glucose Fasting 103 mg/dL (60-99); HDL Cholesterol 43 mg/dL (>40); LDL Cholesterol Calculated 55 mg/dL (<100); Potassium 4.1 mmol/L (3.3-5.1); Sodium 142 mmol/L (135-145); Triglycerides 67 mg/dL (<150)
[2024-08-01 12:24] LABS: TSH reflex Free T4 1.81 uIU/mL (0.32-4.0); Vitamin D 25-OH Total 40.8 ng/mL (>30)
[2024-08-01 12:26] LABS: Creatinine Urine 210.65 mg/dL; Microalbum/Creatinine Ratio Ur 14.2 ug/mg cr (<30)
[2024-08-05 15:33] LABS: PSA, Ultra Sensitive <0.02 ng/mL
== END 2024-08-01 09:19 | disposition home or self-care (01) ==
LOC: HO.WFDLDS 09:18
PROVIDERS: Visit Provider Nurse Practitioner Family
DX: Z00.00 Encounter for general adult medical examination without abnormal findings (principal); Z13.220 Encounter for screening for lipoid disorders; Z12.5 Encounter for screening for malignant neoplasm of prostate; Z13.29 Encounter for screening for other suspected endocrine disorder; Z13.9 Encounter for screening, unspecified; Z13.228 Encounter for screening for other metabolic disorders; Z13.0 Encounter for screening for diseases of the blood and blood-forming organs and certain disorders involving the immune mechanism
CPT/HCPCS: 36415; 80053; 80061; 81003; 82043; 82306; 82570; 84153; 84443; 85025

== ENCOUNTER 2024-08-07 09:31 | Outpatient (AMB) | payer MEDICARE, SELFPAY ==
--- NOTE | 2024-08-07 09:37 | MHC.PC.OV ---
Vital Signs 08/07/24 09:41 08/07/24 10:15 Height 5 ft 9 in Weight 199 lb 4 oz BMI 29.4 BP 144/65 H 120/60 Blood Pressure Location Lt brachial Lt brachial Position Sitting Sitting Respiration 16 Pulse 54 Pulse Source Pulse Oximeter Temp 97.5 F Temp Source Oral Pulse Oximetry (%) 99 Oxygen Delivery Method Room Air Intake Visit Reasons: 1 wk HTN, labs review Intake Note: patient here for 1wk follow up for HNT and lab review Bag Printer Required: No Allergies lisinopril Allergy (Intermediate, Verified 08/07/24 10:03) caugh Penicillins Allergy (Intermediate, Verified 08/07/24 10:03) Swelling Medication List - Last Reconciled 08/07/24 by Janelle Correa CNP aspirin (Adult Aspirin Regimen) 81 mg PO DAILY atorvastatin 80 mg PO DAILY isosorbide mononitrate ER 30 mg PO DAILY losartan 25 mg PO DAILY 30 days losartan 50 mg PO DAILY metoprolol tartrate 25 mg PO BID nitroglycerin 0.4 mg sublingual Q5M PRN pantoprazole 40 mg PO DAILY Tobacco use date assessed: 08/07/24 Fall risk assessment: No Falls in past year Last assessed Fall Risk: 08/07/24 Dental Screening Dental Screen Date: 08/07/24 Did you have a dental visit in the last 12 months?: No Did you have a dental problem in the last 6 months where you did not have access to dental care?: No Was dental information given to patient?: Patient has dentist HPI HPI Comments History of Present Illness Details 79-year-old male, accompanied by his , presents for hypertension and review of recent lab results follow-up. He admits to taking his medications as prescribed without adverse reactions. He brought a blood pressure log for the past 1 week and his blood pressure readings her below 130/80. He saw his appliance service technician yesterday. He offers no complaints and denies acute symptoms at this time. [facility] Medical History (Updated 08/07/24 @ 10:05 by Janelle Correa CNP) Left hand fracture Schatzki's ring Prostate cancer History of gastroesophageal reflux (GERD) Arthritis Heart disease Stroke (cerebrum) High cholesterol High blood pressure Surgical History (Updated 07/31/24 @ 11:29 by Jessie Zaragoza MA) H/O cataract removal with insertion of prosthetic lens History of prostatectomy History of carotid endarterectomy Family History (Updated 07/31/24 @ 11:45 by Jessie Zaragoza MA) Brother Asthma Father High blood pressure FH: mental illness Parkinson disease Mother High blood pressure High cholesterol Diabetes Cardiovascular disease Paternal Grandfather Cardiovascular disease Social History Housing: House Patient Tobacco Use Status: Never used Tobacco e-Cigarette/Vaping Use: Never Used Second Hand Smoke Exposure: No service: No Current occupational status: retired Current occupational exposures/hazards: No Cognitive needs: No Hearing needs: No Vision needs: Yes Questionnaire Thrive Questionnaire Date Thrive assessed: 07/24/24 I am a: Patient What is your living situation today?: I have a steady place to live Within the past 12 months, did the food you bought not last and you didn't have the money to get more?: Sometimes True Within the past 12 months, did you worry whether your food would run out before you got money to buy more?: Never true Do you have trouble paying for medicines?: No Do you have trouble getting transportation to medical appointments?: No Do you have trouble paying your heating and electricity bill?: No Do you have trouble taking care of your child, family member or friend?: No Do you have trouble with day-to-day activities such as bathing, preparing meals, shopping, managing finances, etc.?: No Are you currently unemployed and looking for a job?: No Are you interested in more education?: Yes Please select the resources that you would like help with: None Currently or been in a relationship where the following occur: No concerns reported THRIVE Score: 1 MARCELINO-7 AMB Questionnaire MARCELINO-7 Date MARCELINO - 7 assessed: 07/31/24 Source: Developed by Drs. Erasmo Oliva, Kristi Herrera, Brice Banks and colleagues, with an educational wendy from [employer]. Review of Systems Const Details: Const Denies chills, Denies fatigue, Denies fever(s), Denies headache(s) and Denies weakness ENT Denies dizziness and Denies headache(s) Card Denies chest pain, Denies lightheadedness, Denies dyspnea and Denies other (Palpitations) Resp Denies cough, Denies dyspnea, Denies wheezing and Denies other ( shortness of breath) GI Denies abdominal pain, Denies melena, Denies hematochezia, Denies change in bowel habits, Denies dyspepsia and Denies nausea Denies hematuria and Denies dysuria Musc Denies abnormal gait, Denies myalgias, Denies arthralgias, Denies numbness and Denies tingling Skin/Breast Denies rash, Denies unusual bruising and Denies wounds Neuro Denies abnormal gait, Denies dizziness, Denies headache(s), Denies memory loss, Denies numbness, Denies Sensory deficit (Neuro), Denies tingling and Denies weakness Psych Denies anxiety, Denies depression, Denies memory loss Endo Denies cold intolerance, Denies fatigue, Denies heat intolerance, Denies polydipsia and Denies polyuria Aller/Immun Denies wheezing Physical exam (Primary Care) Vital Signs: Last Vital Signs Temp 97.5 F 08/07/24 09:41 Pulse 54 08/07/24 09:41 Resp 16 08/07/24 09:41 BP 144/65 H 08/07/24 09:41 Pulse Ox 99 08/07/24 09:41 Oxygen Delivery Method Room Air 08/07/24 09:41 BMI result Body Mass Index 29.4 Tobacco/Smoking Status: Tobacco use Status Tobacco use date assessed 08/07/24 08/07/24 09:44 Patient Tobacco Use Status Never used Tobacco 08/07/24 09:39 e-Cigarette/Vaping Use Never Used 08/07/24 09:39 Thrive Assessment: Date of Thrive Assessment Date Thrive assessed 07/24/24 08/07/24 09:39 Currently or been in a relationship where the following occur: No concerns reported Const Other: General: no acute distress and well developed Nutritional Appearance: well nourished Orientation/consciousness: patient oriented x3 [facility] Head: Yes normocephalic and Yes atraumatic Eyes General: appearance normal, both eyes and all related structures Pupils: Equal, round and reactive pupils present EOM: EOMs intact bilaterally Resp Effort & Inspection: normal respiratory effort Auscultation: clear to auscultation bilaterally Cardio Rate: regular rate Rhythm: regular rhythm Heart sounds: S1 normal heart sound present, S2 normal heart sound present, no gallops, no murmurs and no rubs GI Palpation (GI): No Abdominal aortic bruit present, Soft to palpation, nontender, No hepatosplenomegaly present and No Rebound tenderness present Auscultation: normal bowel sounds General: Yes no CVA tenderness Back/Spine/Pelvis Back: no CVA tenderness Cervical Spine: cervical ROM normal and No Cervical spine tenderness Thoracic/Lumbar Spine: thoraco-lumbar ROM normal, No pain with thoraco-lumbar ROM, No thoracic spinal tenderness and No lumbar spinal tenderness Extrem General: Yes normal to inspection, No edema and No calf tenderness Skin General: warm and dry. Normal skin color. Normal skin turgor Neuro General: patient oriented x3, gait normal and no focal neuro deficit Cranial nerves: Yes Equal, round and reactive pupils present Cognition (Neuro): normal cognition Gait exam (Neuro): Normal gait present Sensory Exam: No Sensory deficit (Neuro) Psych Appearance: grossly normal Affect: normal affect Attitude: cooperative Thought process: Normal thought process present Coding Level of Care Code Est Pt Level 3 (54945) Diagnoses High blood pressure I10 Elevated fasting glucose R73.01 Hyperbilirubinemia E80.6 Elevated ALT measurement R74.01 Assessment & Plan Assessment & Plan (1) High blood pressure: Code(s): I10 - Essential (primary) hypertension Category: Medical Plan: Resting blood pressure is 120/60, within goal of less than 130/80. Continue current treatment regimen. Low-sodium diet encouraged. Follow-up in 2 months or sooner with symptoms or concerns. Verbalized understanding and agreed with treatment plan. (2) Elevated fasting glucose: Code(s): R73.01 - Impaired fasting glucose Category: Medical Plan: Recent fasting glucose is slightly elevated, 103. Healthy diet and routine exercise encouraged. Will recheck fasting glucose and make changes as needed. (3) Hyperbilirubinemia: Code(s): E80.6 - Other disorders of bilirubin metabolism Category: Medical Plan: Recent total bilirubin is slightly elevated, 1.4. 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 Will recheck bilirubin level and make changes as needed. (4) Elevated ALT measurement: Code(s): R74.01 - Elevation of levels of liver transaminase levels Category: Medical Plan: Recent ALT level is slightly elevated, 45. Likely fatty liver deposits. Routine exercise and healthy diet including low fat encouraged. Will monitor liver enzymes periodically or with related symptoms or concerns. Verbalized understanding and agreed with the plan. Orders: Orders Glucose Fasting Today I10 - Essential (primary) hypertension Bilirubin Total Today E80.6 - Other disorders of bilirubin metabolism
[2024-08-07 09:41] VITALS: BP 144/65; PULSE 54; RESP 16; TEMP 36.4; O2SAT 99; BMI 29.4
[2024-08-07 10:15] VITALS: BP 120/60
--- OUTSIDE RECORDS SUMMARY | 2024-08-07 10:31 | XMS_ITS | Clinical Summary ---
Author Organization [facility] 230 [facility] [address] Address [address] [place] [address] Phone Care Team Providers Care Adult Basic Education Teacher Name Role Phone Janelle Correa PASHA Primary Care Provider Allergies Active Allergy Reactions Criticality Noted Date [...] each 1 02/24/2024 08/23/19 25 Active losartan (COZAAR) 25 mg tablet Take 1 tablet (25 mg total) by mouth 1 (one) time each day. Active Active Problems Problem Noted Date Diagnosed Date Blood loss anemia 10/20/2023 Carotid artery stenosis 10/20/2023 CVA (cerebral vascular accident) ([facility] V24, [place]/[facility] V28) 10/20/2023 Overview (01/23/2024): Last Assessment & [...] - Most recent echocardiogram during hospitalization at [facility] in September 2023 showed normal left [...] for stable anginal symptoms. Assessment & Plan (08/06/2024 10:59 AM EDT): No new anginal symptoms at the appointment today. He did have reassuring stress echocardiogram. Would like him to continue on his current medications which includes baby aspirin, atorvastatin 80 mg daily, Imdur 30 mg p.o. daily, losartan 75 mg p.o. daily, metoprolol 25 mg p.o. twice daily. Patient also has sublingual nitroglycerin if he needs to utilize it. Instructed to call 911 or go to the emergency room should the patient begin to experience chest pain or pressure lasting greater than 10 minutes does not resolve with rest. Assessment & Plan (05/02/2024 11:42 AM EST): [...] metoprolol, Imdur, losartan. Continue. Assessment & Plan (08/06/2024 10:59 AM EDT): Well-controlled at home, patient has list with blood pressure measurements that show they are very well-controlled. Continue on current medication regiment. Of note he did have his losartan increased by his PCP from 50 to 75 mg p.o. daily. Assessment & Plan (05/02/2024 11:42 AM EST): [...] a couple of months. Assessment & Plan (08/06/2024 10:59 AM EDT): Cholesterol and triglycerides well-controlled. Continue on current medication regimen. Assessment & Plan (05/02/2024 11:42 AM EST): Continue on current high-dose statin. Encounters Date Type Department Care Team Description 08/06/2024 10:40 AM EDT Office Visit [facility] Cardiology [facility] [address] [place] [phone] Raimundo Long NP Essential hypertension, benign (Primary Dx); Coronary artery disease involving [place] coronary artery of [place] heart, unspecified whether angina present; Pure hypercholesterolemia 06/06/2024 Telephone [facility] [address] [place] [phone] Raimundo Long NP Results ([facility] results ) 05/15/2024 12:30 PM EST Ancillary Procedure [facility] [address] [place] [phone] Coronary artery disease, unspecified vessel or lesion type, unspecified whether angina present, unspecified whether [place] or transplanted heart 05/10/2024 Telephone [facility] [address] [place] [phone] Leslie Oquendo [place] CoQ10 from Last 3 [...] e hypercholesterolemia Malignant neoplasm of prosta te ([facility] V24, [facility] V28) 12/19/2006 DX:Malignant neoplasm of pr ostate ([facility]); COMMENT: georgette 7, s/p radical prostatectomy 2006 [...] ed Within the last 3 months, ho carl many times did you visit the emergency [...] care for your loved ones. For example, child protective investigator or elderly care for an older adult? [...] Reading Time Taken Comments Blood Pressure 130/70 08/06/2024 10:16 AM EDT Pulse 53 08/06/2024 10:16 AM EDT Temperature 37.2 ??C (98.9 ??F) 02/24/2024 2:16 PM ES T Respiratory Rate - - Oxygen Saturation 98% 08/06/2024 10:16 AM EDT Inhaled Oxygen Concentration - - Weight 89.8 kg (198 lb) 08/06/2024 10:16 AM EDT Height 170.2 cm (5' 7 ) 08/06/2024 10:16 AM EDT Body Mass Index 31.01 08/06/2024 10:16 AM EDT Plan of Treatment Upcoming Encounters Date Type Department Care Team (Late st Contact Info) Description 02/15/2025 10:40 AM EST Office Visit [facility] - [facility] [address] [facility] [address] [place] [address] Raimundo Long NP [address] [place] [address] Health Maintenance Due Date Last Done Comments [...] type, unspecified whether angina present, unspecified whether [place] or transplanted heart COMPREHENSIVE METABOLIC PANEL Routine [...] Negative echocardiographic evidence of ischemia or infarction. us Raimundo Long NP CV ECHO PROCEDURES Final Result * (ABNORMAL) Comprehensive metabolic panel (02/24/2024 3:20 PM EST) Sodium 140 133 - 145 mmol/L LAB CHEMISTRY METHOD 02/24/2024 6:28 PM [facility] Potassium 4.2 3.5 - 5.5 mmol/L LAB CHEMISTRY METHOD 02/24/2024 6:28 PM [facility] Chloride 108 96 - 110 mmol/L LAB CHEMISTRY METHOD 02/24/2024 6:28 PM [facility] CO2 27 21 - 32 mmol/L LAB CHEMISTRY METHOD 02/24/2024 6:28 PM [facility] Anion Gap 5 3 - 11 LAB CHEMISTRY METHOD 02/24/2024 6:28 PM [facility] Glucose 113(H) 70 - 100 mg/dL LAB CHEMISTRY METHOD 02/24/2024 6:28 PM [facility] BUN 17 5 - 25 mg/dL LAB CHEMISTRY METHOD 02/24/2024 6:28 PM [facility] Creatinine 1.07 0.70 - 1.30 mg/dL LAB CHEMISTRY METHOD 02/24/2024 6:28 PM [facility] eGFR 71 >=60 mL/min/1. 73m2 LAB CHEMISTRY METHOD 02/24/2024 6:28 PM [facility] Comment:Calculation based on the??Chronic Kidney Disease Epidemiology Collaboration (CKD-EPI) equation refit??without adjustment for race. BUN/Creatinine Ratio 15.9 LAB CHEMISTRY METHOD 02/24/2024 6:28 PM [facility] Calcium 9.4 8.5 - 10.5 mg/dL LAB CHEMISTRY METHOD 02/24/2024 6:28 PM [facility] AST (SGOT) 24 10 - 42 unit/L LAB CHEMISTRY METHOD 02/24/2024 6:28 PM [facility] ALT (SGPT) 43 10 - 60 unit/L LAB CHEMISTRY METHOD 02/24/2024 6:28 PM EST [facility] Alkaline Phosphatase 69 42 - 121 unit/L LAB CHEMISTRY METHOD 02/24/2024 6:28 PM EST [facility] Total Protein 6.9 6.0 - 8.0 g/dL LAB CHEMISTRY METHOD 02/24/2024 6:28 PM EST [facility] Albumin 4.5 3.2 - 5.0 g/dL LAB CHEMISTRY METHOD 02/24/2024 6:28 PM EST [facility] Total Bilirubin 1.1 0.0 - 1.4 mg/dL LAB CHEMISTRY METHOD 02/24/2024 6:28 PM EST [facility] Blood Venous blood specimen / Unknown Venipuncture / Unknown 02/24/2024 3:20 PM EST 02/24/2024 3:20 PM EST Macey PRESSLEY LAB BLOOD ORDERABLES Final Resul t [facility] [address] [place] [address], * Lipid panel (01/09/2024) Pathologist [facility] LDL/HDL Ratio 2 0 - 4 Triglycerides 53 0 - 150 mg/dL Cholesterol 103 0 - 200 mg/dL HDL 45 >=40 mg/dL LDL Cholesterol 48 0 - 100 mg/dL Blood Venous blood specimen / Unknown Sabra Arredondo MD LAB BLOOD ORDERABLES Megan l Result * Depression Screening (10/11/2023) Pathologist [facility] Depression Screening abstracted Historical Provider HEALTH MAINTENANCE Final Result * Hepatitis C Screening (05/22/2013) Pathologist [facility] Hepatitis C Screening abstracted Historical Arnulfo SERRANO HEALTH MAINTENANCE Final Result from Last 3 Months or Most Recently Relevant to Health Maintenance Insurance MEDICARE [facility] Care Teams Adult Basic Education Teacher Relationship Specialty Start Date End Date Janelle Correa FNP [address] [place] [id number] PCP - General Family Medicine 08/06/24
--- OUTSIDE RECORDS SUMMARY | 2024-08-07 10:31 | XMS_ITS | Encounter Summary ---
Author Organization [facility] Address [address] [place] [address] Care Team Providers Care Image Assembler Name Role Phone Janelle Correa PASHA Primary Care Provider [phone] Reason for Visit * Reason Comments Follow-up Encounter Details Date Type Department Care Team (Latest Contact Info) Description 08/06/2024 10:40 AM EDT Office Visit [facility] [address] [facility] [address] [place] [address] Raimundo Long NP [address] [place], [place] [id number] Essential hypertension, benign (Primary Dx); Coronary artery disease involving [place] coronary artery of [place] heart, unspecified whether angina present; Pure hypercholesterolemia Social History Tobacco Use Types Packs/Day Years [...] for your loved ones. For example, children's attendant or elderly care for an older adult? [...] file Not on file Not on file documented as of this encounter Last Filed Vital Signs Vital Sign Reading Time Taken Comments Blood Pressure 130/70 08/06/2024 10:16 AM EDT Pulse 53 08/06/2024 10:16 AM EDT Temperature - - Respiratory Rate - - Oxygen Saturation 98% 08/06/2024 10:16 AM EDT Inhaled Oxygen Concentration - - Weight 89.8 kg (198 lb) 08/06/2024 10:16 AM EDT Height 170.2 cm (5' 7 ) 08/06/2024 10:16 AM EDT Body Mass Index 31.01 08/06/2024 10:16 AM EDT documented in this encounter Progress Notes * Raimundo Long NP - 08/06/2024 10:40 AM EDTAssociated Problem(s): Essential hypertension, benign Well-controlled at home, patient has list with blood pressure measurements that show they are very well-controlled. Continue on current medication regiment. Of note he did have his losartan increasedby his PCP from 50 to 75 mg p.o. daily. * Raimundo Long NP - 08/06/2024 10:40 AM EDTAssociated Problem(s): CAD (coronary artery disease) No new anginal symptoms at the appointment [...] 10 minutes does not resolve with rest. * Raimundo Long NP - 08/06/2024 10:40 AM EDTAssociated Problem(s): Pure hypercholesterolemia Cholesterol and triglycerides well-controlled. Continue on current medication regimen. documented in this encounter Plan of Treatment Upcoming Encounters Date Type Department Care Team (Late st Contact Info) Description 02/15/2025 10:40 AM EST Office Visit [facility] [address] [facility] [address] [place] [address] Raimundo Long NP [address] [place] [address] documented as of this encounter Visit Diagnoses Diagnosis Essential hypertension, benign- Primary Coronary artery disease involving [place] coronary artery of [place] heart, unspecified whether angina present Pure hypercholesterolemia documented in this encounter Historical Medications * This list may reflect changes made after this encounter. losartan (COZAAR) 25 mg tablet Take 1 tablet (25 mg total) by mouth 1 (one) time each day. added in this encounter Additional Health Concerns Assessment Noted Time PHQ-9 Depression Total Score: 0 02/21/20 9:46 AM EST A fall risk assessment has been complete d for the patient 02/21/2024 9:44 AM EST documented as of this encounter Care Teams Image Assembler Relationship Specialty Start Date End Date Janelle Correa FNP [address] [place] [address] PCP - General Family Medicine 08/06/24 documented as of this encounter
== END 2024-08-07 10:17 | disposition home or self-care (01) ==
LOC: HO.HMCFM 09:32
PROVIDERS: PCP Nurse Practitioner Family; Visit Provider Nurse Practitioner Family
DX: I10 Essential (primary) hypertension (principal); R73.01 Impaired fasting glucose; E80.6 Other disorders of bilirubin metabolism; R74.01 Elevation of levels of liver transaminase levels

== ENCOUNTER → 2024-08-07 09:31 | Outpatient (BNVA) | payer MEDICARE, SELFPAY | PROVIDERS: PCP Nurse Practitioner Family; Visit Provider Nurse Practitioner Family | DX: I10 Essential (primary) hypertension (principal); R73.01 Impaired fasting glucose; R74.01 Elevation of levels of liver transaminase levels; E80.6 Other disorders of bilirubin metabolism | CPT/HCPCS: 99212 ==

== ENCOUNTER 2024-08-15 09:21 | Outpatient (REF) | payer MEDICARE, SELFPAY ==
[2024-08-15 11:45] LABS: Bilirubin Total 1.2 mg/dL (0.0-1.0); Glucose Fasting 102 mg/dL (60-99)
== END 2024-08-15 09:22 | disposition home or self-care (01) ==
LOC: HO.WFDLDS 09:21
PROVIDERS: Visit Provider Nurse Practitioner Family
DX: E80.6 Other disorders of bilirubin metabolism (principal); I10 Essential (primary) hypertension
CPT/HCPCS: 36415; 82247; 82947

== ENCOUNTER 2024-10-26 10:53 | Outpatient (AMB) | payer MEDICARE, SELFPAY ==
--- NOTE | 2024-10-26 10:56 | A.OFFPC_ITS ---
Vital Signs 10/26/24 11:00 10/26/24 11:24 Height 5 ft 9 in Weight 193 lb 2 oz BMI 28.5 BP 139/62 116/60 Blood Pressure Location Lt brachial Lt brachial Position Sitting Sitting Respiration 16 Pulse 57 Pulse Source Pulse Oximeter Temp 98.5 F Temp Source Oral Pulse Oximetry (%) 98 Oxygen Delivery Method Room Air Intake Visit Reasons: 2 mos HTN Intake Note: patient here for 2 month follow up on HTN Resident Surgeon Required: No Allergies lisinopril Allergy (Intermediate, Verified 10/26/24 11:08) caugh Penicillins Allergy (Intermediate, Verified 10/26/24 11:08) Swelling Medication List - Last Reconciled 10/26/24 by Janelle Correa CNP aspirin (Adult Aspirin Regimen) 81 mg PO DAILY 90 days atorvastatin 80 mg PO DAILY 90 days isosorbide mononitrate ER 30 mg PO DAILY 90 days losartan 25 mg PO DAILY 90 days losartan 50 mg PO DAILY 90 days metoprolol tartrate 25 mg PO BID 90 days nitroglycerin 0.4 mg sublingual Q5M PRN pantoprazole 40 mg PO DAILY 90 days Tobacco use date assessed: 10/26/24 Fall risk assessment: No Falls in past year Last assessed Fall Risk: 10/26/24 Dental Screening Dental Screen Date: 10/26/24 Did you have a dental visit in the last 12 months?: No Did you have a dental problem in the last 6 months where you did not have access to dental care?: No Was dental information given to patient?: Patient has dentist HPI HPI Comments History of Present Illness Details 79-year-old male, accompanied by his wif tacho, presents for hypertension and labs review follow-up. He admits to taking his medications as prescribed without adverse reactions. He notes that he has been making healthy lifestyle changes. He brought a log of 7 home blood pressure readings and heart rate from 08/15/2024 to 10/24/2024. His blood pressure was between 107-126/61-73. Heart rate between 52-57. He offers no complaints and denies acute symptoms at this time. [facility] Medical History (Updated 08/07/24 @ 10:05 by Janelle Correa CNP) Left hand fracture Schatzki's ring Prostate cancer History of gastroesophageal reflux (GERD) Arthritis Heart disease Stroke (cerebrum) High cholesterol High blood pressure Surgical History (Updated 07/31/24 @ 11:29 by Jessie Zaragoza MA) H/O cataract removal with insertion of prosthetic lens History of prostatectomy History of carotid endarterectomy Family History (Updated 07/31/24 @ 11:45 by Jessie Zaragoza MA) Brother Asthma Father High blood pressure FH: mental illness Parkinson disease Mother High blood pressure High cholesterol Diabetes Cardiovascular disease Paternal Grandfather Cardiovascular disease Social History Housing: House Patient Tobacco Use Status: Never used Tobacco e-Cigarette/Vaping Use: Never Used Second Hand Smoke Exposure: No service: No Current occupational status: retired Current occupational exposures/hazards: No Cognitive needs: No Hearing needs: No Vision needs: Yes Questionnaire Thrive Questionnaire Date Thrive assessed: 07/24/24 I am a: Patient What is your living situation today?: I have a steady place to live Within the past 12 months, did the food you bought not last and you didn't have the money to get more?: Sometimes True Within the past 12 months, did you worry whether your food would run out before you got money to buy more?: Never true Do you have trouble paying for medicines?: No Do you have trouble getting transportation to medical appointments?: No Do you have trouble paying your heating and electricity bill?: No Do you have trouble taking care of your child, family member or friend?: No Do you have trouble with day-to-day activities such as bathing, preparing meals, shopping, managing finances, etc.?: No Are you currently unemployed and looking for a job?: No Are you interested in more education?: Yes Please select the resources that you would like help with: None Currently or been in a relationship where the following occur: No concerns reported THRIVE Score: 1 MARCELINO-7 AMB Questionnaire MARCELINO-7 Date MARCELINO - 7 assessed: 07/31/24 Source: Developed by Drs. Erasmo Oliva, Kristi Herrera, Brice Banks and colleagues, with an educational wendy from [employer]. Review of Systems Const Details: Const Denies chills, Denies fatigue, Denies fever(s), Denies headache(s) and Denies weakness ENT Denies dizziness and Denies headache(s) Card Denies chest pain, Denies lightheadedness, Denies dyspnea and Denies other (Palpitations) Resp Denies cough, Denies dyspnea, Denies wheezing and Denies other ( shortness of breath) GI Denies abdominal pain, Denies melena, Denies hematochezia, Denies change in bowel habits, Denies dyspepsia and Denies nausea Denies hematuria and Denies dysuria Musc Denies abnormal gait, Denies myalgias, Denies arthralgias, Denies numbness and Denies tingling Skin/Breast Denies rash, Denies unusual bruising and Denies wounds Neuro Denies abnormal gait, Denies dizziness, Denies headache(s), Denies memory loss, Denies numbness, Denies Sensory deficit (Neuro), Denies tingling and Denies weakness Psych Denies anxiety, Denies depression, Denies memory loss Endo Denies cold intolerance, Denies fatigue, Denies heat intolerance, Denies polydipsia and Denies polyuria Aller/Immun Denies wheezing Physical exam (Primary Care) Vital Signs: Last Vital Signs Temp 98.5 F 10/26/24 11:00 Pulse 57 10/26/24 11:00 Resp 16 10/26/24 11:00 BP 139/62 10/26/24 11:00 Pulse Ox 98 10/26/24 11:00 Oxygen Delivery Method Room Air 10/26/24 11:00 BMI result Body Mass Index 28.5 Tobacco/Smoking Status: Tobacco use Status Tobacco use date assessed 10/26/24 10/26/24 11:05 Patient Tobacco Use Status Never used Tobacco 10/26/24 10:58 e-Cigarette/Vaping Use Never Used 10/26/24 10:58 Thrive Assessment: Date of Thrive Assessment Date Thrive assessed 07/24/24 10/26/24 10:58 Currently or been in a relationship where the following occur: No concerns rep orted Const Other: General: no acute distress and well developed Nutritional Appearance: well nourished Orientation/consciousness: patient oriented x3 HENMT Head: Yes normocephalic and Yes atraumatic Eyes General: appearance normal, both eyes and all related structures Pupils: Equal, round and reactive pupils present EOM: EOMs intact bilaterally Resp Effort & Inspection: normal respiratory effort Auscultation: clear to auscultation bilaterally Cardio Rate: regular rate Rhythm: regular rhythm Heart sounds: S1 normal heart sound present, S2 normal heart sound present, no gallops, + murmurs and no rubs GI Palpation (GI): No Abdominal aortic bruit present, Soft to palpation, nontender, No hepatosplenomegaly present and No Rebound tenderness present Auscultation: normal bowel sounds General: Yes no CVA tenderness Back/Spine/Pelvis Back: no CVA tenderness Cervical Spine: cervical ROM normal and No Cervical spine tenderness Thoracic/Lumbar Spine: thoraco-lumbar ROM normal, No pain with thoraco-lumbar ROM, No thoracic spinal tenderness and No lumbar spinal tenderness Extrem General: Yes normal to inspection, No edema and No calf tenderness Skin General: warm and dry. Normal skin color. Normal skin turgor Neuro General: patient oriented x3, gait normal and no focal neuro deficit Cranial nerves: Yes Equal, round and reactive pupils present Cognition (Neuro): normal cognition Gait exam (Neuro): Normal gait present Sensory Exam: No Sensory deficit (Neuro) Psych Appearance: grossly normal Affect: normal affect Attitude: cooperative Thought process: Normal thought process present Results AMB Hemoglobin A1c AMB Hemoglobin A1c 5.3 % Last Edit by Jessie Zaragoza MA on 10/26/24 11:17 Coding Level of Care Code Est Pt Level 3 (77631) Diagnoses High blood pressure I10 Hyperbilirubinemia E80.6 Elevated fasting glucose R73.01 Assessment & Plan Assessment & Plan (1) High blood pressure: Code(s): I10 - Essential (primary) hypertension Category: Medical Plan: Resting blood pressure is 116/60, within goal of less than 130/80. His home blood pressure and heart rate readings from 08/15/2024 to 10/24/2024 are between 107-126/61-73 and 52-57 respectively. Continue current treatment regimen. Low-sodium diet encouraged. Follow-up in 3 months or sooner with symptoms or concerns. Verbalized understanding and agreed with the plan. (2) Hyperbilirubinemia: Code(s): E80.6 - Other disorders of bilirubin metabolism Category: Medical Plan: Recent bilirubin level is 1.2 from 1.4. Asymptomatic. 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 Will monitor bilirubin level a and Hector or if presents with related symptoms or concerns. Verbalized understanding and agreed with the plan. (3) Elevated fasting glucose: Code(s): R73.01 - Impaired fasting glucose Category: Medical Plan: Recent fasting glucose is 102. Ferrous level was 103. A1c today is normal, 5.3%. Healthy diet and routine exercise encouraged. Will monitor fasting glucose annually or if presents with related symptoms or concerns. Verbalized understanding and agreed with the plan. Orders: Orders AMB Hemoglobin A1c Today Z13.9 - Encounter for screening, unspecified Medications: Refilled losartan Take with losartan 50 mg daily to equal 75 mg daily 25 mg PO DAILY 90 tabs 1RF 90 days
[2024-10-26 11:00] VITALS: BP 139/62; PULSE 57; RESP 16; TEMP 36.9; O2SAT 98; BMI 28.5
[2024-10-26 11:24] VITALS: BP 116/60
--- OUTSIDE RECORDS SUMMARY | 2024-10-26 11:27 | XMS_ITS | Clinical Summary ---
Author Organization [facility] [address] [facility] l[address] Address [address] [place] [address] Phone Care Team Providers Care Pharmacy Teacher Name Role Phone Janelle Correa PASHA Primary Care Provider [phone] Allergies Active Allergy Reactions Criticality Noted Date [...] 1 (one) time each day. 90 each 02/24/2024 Active isosorbide mononitrate (IMDUR) 30 mg 24 hr tablet Take 1 tablet (30 mg total) by mouth 1 (one) time each day. 90 each 02/24/2024 Active metoprolol tartrate (LOPRESSOR) 25 mg tablet Take 1 tablet (25 mg total) by mouth 2 (two) times a day. 180 each 02/24/2024 Active losartan (Cozaar) 50 mg tablet Take 1 tablet (50 mg total) by mouth 1 (one) time each day. 90 each 1 02/24/2024 Active losartan (COZAAR) 25 mg tablet Take 1 tablet (25 mg total) by mouth 1 (one) time each day. Active Active Problems Problem Noted Date Diagnosed Date Blood loss anemia 10/20/2023 Carotid artery stenosis 10/20/2023 CVA (cerebral vascular accident) (CMS/[facility] V24, C MS/[facility] V28) 10/20/2023 Overview (01/23/2024): Last Assessment & [...] - Most recent echocardiogram during hospitalization at [facility] in September 2023 showed normal left [...] Description 08/06/2024 10:40 AM EDT Office Visit [facility] - [address] [place] [address] Raimundo Long NP Essential hypertension, benign (Primary Dx); Coronary artery disease involving [place] coronary artery of [place] heart, unspecified whether angina present; Pure hypercholesterolemia from Last 3 Months Immunizations [...] V28) 12/19/2006 DX:Malignant neoplasm of pr ostate ([facility]); COMMENT: georgette 7, s/p radical prostatectomy 2006 [...] for your loved ones. For example, child welfare assistant or elderly care for an older adult? [...] 53 08/06/2024 10:16 AM EDT Temperature 37.2 C (98.9 F) 02/24/2024 2:16 PM EST Respiratory Rate - - Oxygen Saturation 98% [...] Description 02/15/2025 10:40 AM EST Office Visit [facility] - [facility] [address] [facility] [address] [place] [phone] Raimundo Long NP [address] [place] [address] Health Maintenance Due Date Last Done Comments Colorectal Cancer Screening: Stool Based Tests (FOBT/FIT) 03/20/2022 COVID-19 Vaccine ( season) 2024 12/16/2023, 02/07/2023, 08/02/2022, Additional history exists Influenza Vaccine (#1) 2024 , 11/22/2022, 12/29/2021, Additional history exists Depression Screening 02/20/2025 02/21/2024, [...] Vaccine: 50+ Years Completed 06/30/2023, 08/12/2015, 01/28/2011 HIB Vaccines Aged Out No longer eligi [...] Procedure Name Priority Date/Time Associated Diagnosis Comments EXTERNAL CLINICAL LAB Routine 08/01/2024 10:32 AM EDT COMPREHENSIVE METABOLIC PANEL Routine 02/24/2024 3:20 PM EST Essential hypertension, benign LIPID PANEL Routine 01/09/2024 DEPRESSION SCREENING Routine 10/11/2023 HEPATITIS C SCREENING Routine 05/22/2013 from Last 3 Months or Most Recently Relevant to Health Maintenance Results * External clinical lab (08/01/2024 10:32 AM EDT) us Historical Provider LAB BLOOD ORDERABLES Megan l Result * (ABNORMAL) Comprehensive metabolic panel (02/24/2024 3:20 PM EST) Sodium 140 133 - 145 mmol/L LAB CHEMISTRY METHOD 02/24/2024 6:28 PM [facility] Potassium 4.2 3.5 - 5.5 mmol/L LAB CHEMISTRY METHOD 02/24/2024 6:28 PM [facility] Chloride 108 96 - 110 mmol/L LAB CHEMISTRY METHOD 02/24/2024 6:28 PM [facility] CO2 27 21 - 32 mmol/L LAB CHEMISTRY METHOD 02/24/2024 6:28 PM [facility] Anion Gap 5 3 - 11 LAB CHEMISTRY METHOD 02/24/2024 6:28 PM [facility] Glucose 113(H) 70 - 100 mg/dL LAB CHEMISTRY METHOD 02/24/2024 6:28 PM [facility] BUN 17 5 - 25 mg/dL LAB CHEMISTRY METHOD 02/24/2024 6:28 PM [facility] Creatinine 1.07 0.70 - 1.30 mg/dL LAB CHEMISTRY METHOD 02/24/2024 6:28 PM [facility] eGFR 71 >=60 mL/min/1. 73m2 LAB CHEMISTRY METHOD 02/24/2024 6:28 PM [facility] Comment:Calculation based on the Chronic Kidney Disease Epidemiology Collaboration (CKD-EPI) equation refit without adjustment for race. BUN/Creatinine Ratio 15.9 LAB CHEMISTRY METHOD 02/24/2024 6:28 PM [facility] Calcium 9.4 8.5 - 10.5 mg/dL LAB CHEMISTRY METHOD 02/24/2024 6:28 PM [facility] AST (SGOT) 24 10 - 42 unit/L LAB CHEMISTRY METHOD 02/24/2024 6:28 PM [facility] ALT (SGPT) 43 10 - 60 unit/L LAB CHEMISTRY METHOD 02/24/2024 6:28 PM [facility] Alkaline Phosphatase 69 42 - 121 unit/L LAB CHEMISTRY METHOD 02/24/2024 6:28 PM EST [facility] Total Protein 6.9 6.0 - 8.0 g/dL LAB CHEMISTRY METHOD 02/24/2024 6:28 PM EST [facility] Albumin 4.5 3.2 - 5.0 g/dL LAB CHEMISTRY METHOD 02/24/2024 6:28 PM EST [facility] Total Bilirubin 1.1 0.0 - 1.4 mg/dL LAB CHEMISTRY METHOD 02/24/2024 6:28 PM EST [facility] Blood Venous blood specimen / Unknown Venipuncture / Unknown 02/24/2024 3:20 PM EST 02/24/2024 3:20 PM EST Macey PRESSLEY LAB BLOOD ORDERABLES Final Resul t [facility] [address] [place] [address], * Lipid panel (01/09/2024) LDL/HDL Ratio 2 0 - 4 Triglycerides 53 0 - 150 mg/dL Cholesterol 103 0 - 200 mg/dL HDL 45 >=40 mg/dL LDL Cholesterol 48 0 - 100 mg/dL Blood Venous blood specimen / Unknown Result [facility] Sabra Arredondo MD LAB BLOOD ORDERABLES Megan l Result * Depression Screening (10/11/2023) Depression Screening abstracted Historical [facility] [employer] Final Result * Hepatitis C Screening (05/22/2013) Pathologist [facility] Hepatitis C Screening abstracted Historical [facility] [employer] Final Result from Last 3 Months or Most Recently Relevant to Health Maintenance Insurance MEDICARE [facility] Care Teams Pharmacy Teacher Relationship Specialty Start Date End Date Janelle Correa FNP [address] [place] [address] PCP - General Family Medicine 08/06/24
== END 2024-10-26 11:27 | disposition home or self-care (01) ==
LOC: HO.HMCFM 10:54
PROVIDERS: PCP Nurse Practitioner Family; Visit Provider Nurse Practitioner Family
DX: I10 Essential (primary) hypertension (principal); E80.6 Other disorders of bilirubin metabolism; R73.01 Impaired fasting glucose; Z13.9 Encounter for screening, unspecified

== ENCOUNTER → 2024-10-26 10:53 | Outpatient (BNVA) | payer MEDICARE, SELFPAY | PROVIDERS: PCP Nurse Practitioner Family; Visit Provider Nurse Practitioner Family | DX: I10 Essential (primary) hypertension (principal); R73.01 Impaired fasting glucose; E80.6 Other disorders of bilirubin metabolism | CPT/HCPCS: 83036; 99212 ==

== ENCOUNTER 2024-10-31 11:08 | Outpatient (AMB) | payer MEDICARE, SELFPAY ==
--- NOTE | 2024-10-31 11:15 | MHC.OFFVIS ---
Vital Signs 10/31/24 11:16 Height 5 ft 9 in Weight 193 lb BMI 28.5 BP 164/78 H Blood Pressure Location Lt brachial Position Sitting Pulse 55 Pulse Oximetry (%) 98 Oxygen Delivery Method Room Air Intake Visit Reasons: colo screening Intake Note: New consult for pre 4th Colonoscopy screening. Patient denies any other GI issues. Blow Down Operator Required: No Accompanied by: Spouse Allergies lisinopril Allergy (Intermediate, Verified 10/31/24 11:14) caugh Penicillins Allergy (Intermediate, Verified 10/31/24 11:14) Swelling HPI HPI colo screening: Details: Patient is a 79-year-old male with PMH of retention, hyperlipidemia, CAD, arthritis and prostate CA s/p radial prostatectomy. Referred by PCP for pre-colonoscopy screening. Patient is accompanied by his Lynn. Saul presents for evaluation of dysphagia and reflux, as well as for pre-colonoscopy screening. He has a known moderate hiatal hernia, previously identified on barium swallow in 2021, with a plan for upper endoscopy that was delayed due to hospitalization for a stroke in September 2022. Since starting pantoprazole and adopting smaller meal portions, his swallowing difficulty has improved. Dysphagia is provoked by large bites or poorly chewed food, particularly meats, and is relieved by drinking water. He occasionally experiences transient light-headedness when food is obstructed, but regurgitation is infrequent and only occurs with significant bolus impaction. He reports daily reflux symptoms, for which pantoprazole provides relief. He denies recent regurgitation Shares last colonoscopy was in 04/25/2007 and reported as normal, recommendation to repeat in 10 years. Last Cologuard was 2 years ago and normal. He expresses interest in colonoscopy. He reports bowel habits are variable, with regular daily formed stools and occasional loose stools (2x/week), which he attributes to dietary factors; no blood, pain, or significant change in baseline. Appetite and weight are stable. He denies nausea or vomiting. Cardiac history is notable for stable angina, managed with isosorbide, nitroglycerin (rarely used), and other cardiac medications. He has not had recent angina episodes except with exertion or heat exposure. He is followed by cardiology and has a follow-up scheduled. Neurologic history includes a stroke in September 2022, with no reported residual deficits. No recent hospitalizations for cardiac or neurologic events since that time. Social hx: -2 glasses of wine nightly -denies recreational drug use -non-smoker - family hx as below -tolerated anesthesia in the past without difficulty. [facility] Medical History (Updated 10/31/24 @ 11:44 by Sima Snow CNP) Acid reflux Left hand fracture Schatzki's ring Prostate cancer History of gastroesophageal reflux (GERD) Arthritis Heart disease Stroke (cerebrum) High cholesterol High blood pressure Surgical History H/O cataract removal with insertion of prosthetic lens History of prostatectomy History of carotid endarterectomy Family History Brother Asthma Father High blood pressure FH: mental illness Parkinson disease Mother High blood pressure High cholesterol Diabetes Cardiovascular disease Paternal Grandfather Cardiovascular disease Social History Housing: House Patient Tobacco Use Status: Never used Tobacco e-Cigarette/Vaping Use: Never Used Second Hand Smoke Exposure: No service: No Current occupational status: retired Current occupational exposures/hazards: No Cognitive needs: No Hearing needs: No Vision needs: Yes Review of Systems Const Reports as per HPI ENT Reports as per HPI Card Reports as per HPI Resp Reports as per HPI GI Reports as per HPI Reports as per HPI Physical Exam Vital Signs: Oxygen Delivery Method Room Air 10/31/24 11:16 BMI result Body Mass Index 28.5 Const General: healthy appearing, no acute distress and well developed Nutritional Appearance: average body habitus Orientation/consciousness: patient oriented x3 HEENT Head: Yes normal to inspection, Yes normocephalic and Yes atraumatic Face and sinus: Yes normal facial exam Eyes General: appearance normal, both eyes and all related structures Neck Neck: Yes normal visual inspection Resp Effort & Inspection: normal respiratory effort, able to speak in complete sentences, no tracheal deviation and symmetric chest movement Auscultation: clear to auscultation bilaterally Cardio Jugular venous distension: no JVD Rate: regular rate Rhythm: regular rhythm Heart sounds: S1 normal heart sound present, S2 normal heart sound present, no gallops and no murmurs GI Inspection: Yes normal to inspection, No distended, Yes obesity and Yes scar (surgical scar RLQ) Palpation (GI): Soft to palpation, not firm, nontender and No hepatosplenomegaly present Auscultation: normal bowel sounds Neuro General: patient oriented x3 Gait exam (Neuro): Normal gait present Psych Appearance: grossly normal Mental Status: mental status grossly normal Speech and movement: Normal speech and movement present Affect: normal affect Attitude: cooperative Thought process: Normal thought process present Thought content: Normal thought content present Insight: Good insight present (Psych) Judgement: Good judgement present (Psych) Assessment & Plan Assessment & Plan (1) Colon cancer screening: Code(s): Z12.11 - Encounter for screening for malignant neoplasm of colon Category: Medical Plan: Last colonoscopy 2007 (normal), Cologuard 2022 (normal). Personal hx of prostate ca, no family hx of colon ca. We reviewed age-related screening guidelines and associated risks of procedure. Kg would like to proceed with colonoscopy. We believe this is reasonable given reports a loose stools, despite source likely functional source. Advised pre-procedure clearance warranted given cardiac hx. Information Systems Auditor details obtained. Medications: -prescriptions for laxative tablets and MiraLax sent to pharmacy; instructions for Gatorade purchase and clear liquid diet given. - understands ASA will need to be held days prior to procedure. Nurse to review med holds per protocol. Patient educated on scheduling process, procedure preparation, including avoiding certain foods and ensuring clear liquid intake Advised on necessity for ride post-procedure due to sedation. (2) Acid reflux: Code(s): K21.9 - Gastro-esophageal reflux disease without esophagitis Category: Medical Qualifiers: Esophagitis presence: esophagitis presence not specified Qualified Code(s): K21.9 - Gastro-esophageal reflux disease without esophagitis Plan: Pt w/ known moderate hiatal hernia on prior imaging (see scanned document), persistent reflux, and dysphagia. Symptoms improved w/ PPI and dietary modification, but ongoing dysphagia and reflux warrant further evaluation to assess for complications (e.g., esophagitis, stricture, Hook?s) and to guide long-term management. Additional Tests: Schedule EGD to evaluate hernia and esophageal mucosa. Medications: Continue pantoprazole 40mg daily. Lifestyle Modifications: Continue small portions, avoid large/poorly chewed food, increase fiber as tolerated, avoid late meals and known triggers. Plan Follow-up after endoscopy or sooner as needed Time: I spent a total of 45 minutes on the date of encounter which includes: Preparing to see the patient (reviewed previous documentation, test results and medical history) Performing a medically appropriate exam and/or evaluation Ordering medications, tests, and procedures Documenting clinical information in the health record Medications: New bisacodyl Take four tablets once for 1 day per colonoscopy instructions 5 mg PO ONCE 4 tabs 0RF 1 day polyethylene glycol 3350 (Miralax) per colonoscopy prep instructions 238 grams PO ONCE 238 grams 0RF Coding Level of Care Code New Pt New Pt Level 4 (46754) Patient Type New Diagnoses Colon cancer screening Z12.11 Gastroesophageal reflux disease, unspecified whether esophagitis present K21.9 Esophagitis presence: esophagitis presence not specified
[2024-10-31 11:16] VITALS: BP 164/78; PULSE 55; O2SAT 98; BMI 28.5
--- OUTSIDE RECORDS SUMMARY | 2024-10-31 12:10 | XMS_ITS | Clinical Summary ---
Author Organization [facility] [address] [facility] l[address] Address [address] [place] [address] Phone Care Team Providers Care Grinding Wheel Dresser Name Role Phone Janelle Correa PASHA Primary Care Provider [phone] Allergies Active Allergy Reactions Criticality Noted Date [...] artery stenosis 10/20/2023 CVA (cerebral vascular accident) (CMS/[facility] V24, C MS/[facility] V28) 10/20/2023 Overview (01/23/2024): Last Assessment & [...] - Most recent echocardiogram during hospitalization at [facility] in September 2023 showed normal left ventricular [...] Description 08/06/2024 10:40 AM EDT Office Visit [facility] - [address] [place] [address] Raimundo Long NP Essential hypertension, benign (Primary Dx); 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 For example, early childhood education worker or elderly care for an older adult? [...] Description 02/15/2025 10:40 AM EST Office Visit [facility] - [facility] [address] [facility] [address] [place] [phone] aRimundo Long NP [address] [place] [address] Health Maintenance Due Date Last Done Comments Colorectal Cancer Screening: Stool Based Tests (FOBT/FIT) 03/20/2022 COVID-19 Vaccine ( season) 2024 12/16/2023, 02/07/2023, 08/02/2022, Additional history exists Depression Screening 04/11/2024 02/21/2024, 10/11/19 24 Influenza Vaccine (#1) 2024 , 11/22/2022, 12/29/2021, Additional history exists Falls Risk Assessment 02/20/2025 02/21/2024 Medicare Annual [...] mmol/L LAB CHEMISTRY METHOD 02/24/2024 6:28 PM [facility] Potassium 4.2 3.5 - 5.5 mmol/L LAB CHEMISTRY METHOD 02/24/2024 6:28 PM [facility] Chloride 108 96 - 110 mmol/L LAB CHEMISTRY METHOD 02/24/2024 6:28 PM [facility] CO2 27 21 - 32 mmol/L LAB CHEMISTRY METHOD 02/24/2024 6:28 PM [facility] Anion Gap 5 3 - 11 LAB CHEMISTRY METHOD 02/24/2024 6:28 PM [facility] Glucose 113(H) 70 - 100 mg/dL LAB CHEMISTRY METHOD 02/24/2024 6:28 PM [facility] BUN 17 5 - 25 mg/dL LAB CHEMISTRY METHOD 02/24/2024 6:28 PM [facility] Creatinine 1.07 0.70 - 1.30 mg/dL LAB CHEMISTRY METHOD 02/24/2024 6:28 PM [facility] eGFR 71 >=60 mL/min/1. 73m2 LAB CHEMISTRY METHOD 02/24/2024 6:28 PM [facility] Comment:Calculation based on the Chronic Kidney Disease Epidemiology Collaboration (CKD-EPI) equation refit without adjustment for race. BUN/Creatinine Ratio 15.9 LAB CHEMISTRY METHOD 02/24/2024 6:28 PM [facility] Calcium 9.4 8.5 - 10.5 mg/dL LAB CHEMISTRY METHOD 02/24/2024 6:28 PM [facility] AST (SGOT) 24 10 - 42 unit/L LAB CHEMISTRY METHOD 02/24/2024 6:28 PM [facility] ALT (SGPT) 43 10 - 60 unit/L LAB CHEMISTRY METHOD 02/24/2024 6:28 PM [facility] Alkaline Phosphatase 69 [...] Resul t [facility] [address] [place] [address], * Lipid panel (01/09/2024) LDL/HDL Ratio 2 0 - 4 Triglycerides 53 0 - 150 mg/dL Cholesterol 103 0 - 200 mg/dL HDL 45 >=40 mg/dL LDL Cholesterol 48 0 - 100 mg/dL Blood Venous blood specimen / Unknown Result [facility] Sabra Arredondo MD LAB BLOOD ORDERABLES Megan l Result * Depression Screening (10/11/2023) Depression Screening abstracted Historical Arnulfo SRERANO HEALTH MAINTENANCE Final Result * Hepatitis C Screening (05/22/2013) Pathologist [facility] Hepatitis C Screening abstracted Historical Arnulfo SERRANO HEALTH MAINTENANCE Final Result from Last 3 Months or Most Recently Relevant to Health Maintenance Insurance MEDICARE [facility] Care Teams Grinding Wheel Dresser Relationship Specialty Start Date End Date Janelle Correa FNP [address] [place] [address] PCP - General Family Medicine 08/06/24
--- OUTSIDE RECORDS SUMMARY | 2024-10-31 12:10 | XMS_ITS ---
Author Name [facility] Organization Unknown Care Team Organization Name Specialty Phone Email Start Date End Da te [facility] GLORIA CANTRELL Primary Care 12/16/2022 11/28/2023 [facility] Livia Bello DO Primary Care 09/17/202211/09 [facility] [place], PROVIDER Primary Care 02/16/202211/09
== END 2024-10-31 12:16 | disposition home or self-care (01) ==
LOC: HO.HGI 11:09
PROVIDERS: PCP Nurse Practitioner Family; Visit Provider Nurse Practitioner Family
DX: Z01.818 Encounter for other preprocedural examination (principal); Z12.11 Encounter for screening for malignant neoplasm of colon; K21.9 Gastro-esophageal reflux disease without esophagitis
CPT/HCPCS: 99024

== ENCOUNTER → 2024-10-31 11:08 | Outpatient (BNVA) | payer MEDICARE, SELFPAY | PROVIDERS: PCP Nurse Practitioner Family; Visit Provider Nurse Practitioner Family | DX: Z12.11 Encounter for screening for malignant neoplasm of colon (principal); K21.9 Gastro-esophageal reflux disease without esophagitis | CPT/HCPCS: 99212 ==

== ENCOUNTER 2024-11-02 12:45 | Outpatient (AMB) | payer MEDICARE, SELFPAY ==
--- NOTE | 2024-11-02 12:48 | AM.OFFWIN_ITS ---
Intake Vital Signs 11/02/24 12:49 Height 5 ft 9 in Weight 194 lb BMI 28.6 BP 142/70 H Blood Pressure Location Rt brachial Position Sitting Pulse 64 Pulse Source Pulse Oximeter Temp 98.0 F Temp Source Oral Pulse Oximetry (%) 97 Oxygen Delivery Method Room Air Intake Visit Reasons: EP bullseye rash on RT leg Patient Tobacco Use Status: Never used Tobacco Allergies lisinopril Allergy (Intermediate, Verified 10/31/24 11:14) caugh Penicillins Allergy (Intermediate, Verified 10/31/24 11:14) Swelling HPI HPI Comments History of Present Illness Details This is a 79-year-old male with a past medical history of hypertension and gastroesophageal reflux disease presenting for evaluation of a bulls eye rash on his right calf that he first noticed this morning. Patient states 1 week ago he had what he thought was a mosquito bite on his right calf which he treated with topical Benadryl cream. Patient states that he woke up this morning and noticed the rash. Patient denies having any fevers, chills, fatigue, joint pain or any other symptoms. [facility] Medical History (Updated 11/02/24 @ 13:19 by Lo Khanna PA-C) Acid reflux Left hand fracture Schatzki's ring Prostate cancer History of gastroesophageal reflux (GERD) Arthritis Heart disease Stroke (cerebrum) High cholesterol High blood pressure Surgical History H/O cataract removal with insertion of prosthetic lens History of prostatectomy History of carotid endarterectomy Family History Brother Asthma Father High blood pressure FH: mental illness Parkinson disease Mother High blood pressure High cholesterol Diabetes Cardiovascular disease Paternal Grandfather Cardiovascular disease Social History Housing: House Patient Tobacco Use Status: Never used Tobacco e-Cigarette/Vaping Use: Never Used Second Hand Smoke Exposure: No service: No Current occupational status: retired Current occupational exposures/hazards: No Cognitive needs: No Hearing needs: No Vision needs: Yes Review of Systems Const All systems reviewed & are unremarkable except as noted in HPI and below Reports no additional complaints, Denies chills, Denies fatigue and Denies fever(s) Eyes Reports no additional complaints ENT Reports no additional complaints Card Reports no additional complaints Resp Reports no additional complaints Reports no additional complaints Musc Reports no additional complaints Skin/Breast Reports change in pigmentation, Reports erythema and Reports rash Neuro Reports no additional complaints Psych Reports no additional complaints Endo Denies fatigue Romie/Lymph Reports no additional complaints Physical Exam Vital Signs: Last Vital Signs Temp 98.0 F 11/02/24 12:49 Pulse 64 11/02/24 12:49 BP 142/70 H 11/02/24 12:49 Pulse Ox 97 11/02/24 12:49 Oxygen Delivery Method Room Air 11/02/24 12:49 BMI result Body Mass Index 28.6 Const General: cooperative, healthy appearing, comfortable, no acute distress, well developed, alert, awake, Physically active and acute distress; No ill appearing Nutritional Appearance: well nourished Orientation/consciousness: patient oriented x3 Limitations: no limitations Skin Other: Erythematous macular lesion that is round with central clearing on the right medial calf that is not warm and is not tender to touch; diameter of 3.5 cm. Neuro General: patient oriented x3 Psych Appearance: grossly normal Mental Status: mental status grossly normal Insight: Good insight present (Psych) Judgement: Good judgement present (Psych) Assessment & Plan Assessment & Plan (1) Erythema migrans (Lyme disease): Comment: Patient has no other systemic complaints and will therefore be treated with 2 weeks of doxycycline. Code(s): A69.20 - Lyme disease, unspecified Plan: Doxycycline 100 mg b.i.d. times 14 days. Lyme disease testing is deferred at this time secondary to the chronicity of his concern. Medications: New doxycycline hyclate 100 mg PO BID 28 tabs 0RF Coding Level of Care Code Est Pt Level 3 (58658) Diagnoses Erythema migrans (Lyme disease) A69.20 Time Spent (min) 20
--- OUTSIDE RECORDS SUMMARY | 2024-11-02 12:48 | XMS_ITS | Clinical Summary ---
Author Organization [facility] [address] [facility] l[address] Address [address] [place] [address] Phone Care Team Providers Care Biofuels Production Manager Name Role Phone Janelle Correa PASHA Primary Care Provider [phone] Allergies Active Allergy Reactions Criticality Noted Date [...] artery stenosis 10/20/2023 CVA (cerebral vascular accident) (CMS/[facility] V24, C MS/[facility] V28) 10/20/2023 Overview (01/23/2024): Last Assessment & [...] - Most recent echocardiogram during hospitalization at [facility] in September 2023 showed normal left [...] Description 08/06/2024 10:40 AM EDT Office Visit [facility] - [address] [place] [address] Raimundo Long NP Essential hypertension, benign (Primary Dx); Coronary artery disease involving jackson coronary artery of jackson heart, unspecified whether angina present; Pure hypercholesterolemia [...] V28) 12/19/2006 DX:Malignant neoplasm of pr ostate ([facility]); COMMENT: georgette 7, s/p radical prostatectomy 2006 [...] for your loved ones. For example, child care coordinator or elderly care for an older adult? [...] Description 02/15/2025 10:40 AM EST Office Visit [facility] - [facility] [address] [facility] [address] [place] [phone] Raimundo Long NP [address] [place] [address] Health Maintenance Due Date Last Done Comments [...] Procedure Name Priority Date/Time Associated Diagnosis Comments COMPREHENSIVE METABOLIC PANEL Routine 02/24/2024 3:20 PM EST Essential hypertension, benign LIPID PANEL Routine 01/09/2024 DEPRESSION SCREENING Routine 10/11/2023 HEPATITIS C SCREENING Routine 05/22/2013 from Last 3 Months or Most Recently Relevant to Health Maintenance Results * (ABNORMAL) Comprehensive metabolic panel (02/24/2024 3:20 PM EST) [facility] Signature Sodium 140 133 - 145 mmol/L LAB CHEMISTRY METHOD 02/24/2024 6:28 PM EST [facility] Potassium 4.2 3.5 - 5.5 mmol/L LAB CHEMISTRY METHOD 02/24/2024 6:28 PM [facility] Chloride 108 96 - 110 mmol/L LAB CHEMISTRY METHOD 02/24/2024 6:28 PM [facility] CO2 27 21 - 32 mmol/L LAB CHEMISTRY METHOD 02/24/2024 6:28 PM [facility] Anion Gap 5 3 - 11 LAB CHEMISTRY METHOD 02/24/2024 6:28 PM [facility] Glucose 113(H) 70 - 100 mg/dL LAB CHEMISTRY METHOD 02/24/2024 6:28 PM [facility] BUN 17 5 - 25 mg/dL LAB CHEMISTRY METHOD 02/24/2024 6:28 PM [facility] Creatinine 1.07 0.70 - 1.30 mg/dL LAB CHEMISTRY METHOD 02/24/2024 6:28 PM [facility] eGFR 71 >=60 mL/min/1. 73m2 LAB CHEMISTRY METHOD 02/24/2024 6:28 PM [facility] Comment:Calculation based on the Chronic Kidney Disease Epidemiology Collaboration (CKD-EPI) equation refit without adjustment for race. BUN/Creatinine Ratio 15.9 LAB CHEMISTRY METHOD 02/24/2024 6:28 PM [facility] Calcium 9.4 8.5 - 10.5 mg/dL LAB CHEMISTRY METHOD 02/24/2024 6:28 PM [facility] AST (SGOT) 24 10 - 42 unit/L LAB CHEMISTRY METHOD 02/24/2024 6:28 PM [facility] ALT (SGPT) 43 10 - 60 unit/L LAB CHEMISTRY METHOD 02/24/2024 6:28 PM [facility] Alkaline Phosphatase 69 42 - 121 unit/L LAB CHEMISTRY METHOD 02/24/2024 6:28 PM [facility] Total Protein 6.9 6.0 - 8.0 g/dL LAB CHEMISTRY METHOD 02/24/2024 6:28 PM EST [facility] Albumin 4.5 3.2 - 5.0 g/dL LAB CHEMISTRY METHOD 02/24/2024 6:28 PM EST [facility] Total Bilirubin 1.1 0.0 - 1.4 mg/dL LAB CHEMISTRY METHOD 02/24/2024 6:28 PM EST [facility] Blood Venous blood specimen / Unknown Venipuncture / Unknown 02/24/2024 3:20 PM EST 02/24/2024 3:20 PM EST Macey PRESSLEY LAB BLOOD ORDERABLES Final Resul t [facility] ([facility] [[email or web address] [address] [place] [address], * Lipid panel (01/09/2024) Pathologist [facility] LDL/HDL Ratio 2 0 - 4 Triglycerides 53 0 - 150 mg/dL Cholesterol 103 0 - 200 mg/dL HDL 45 >=40 mg/dL LDL Cholesterol 48 0 - 100 mg/dL Blood Venous blood specimen / Unknown Result [facility] Sabra Arredondo MD LAB BLOOD ORDERABLES Megan l Result * Depression Screening (10/11/2023) Pathologist [facility] Depression Screening abstracted Historical Provider HEALTH MAINTENANCE Final Result * Hepatitis C Screening (05/22/2013) [facility] Hepatitis C Screening abstracted Result [facility] Historical Provider HEALTH MAINTENANCE Final Result from Last 3 Months or Most Recently Relevant to Health Maintenance Insurance MEDICARE [facility] Care Teams Biofuels Production Manager Relationship Specialty Start Date End Date Janelle Correa FNP [address] [place] [address] PCP - General Family Medicine 08/06/24
[2024-11-02 12:49] VITALS: BP 142/70; PULSE 64; TEMP 36.7; O2SAT 97; BMI 28.6
== END 2024-11-02 14:23 | disposition home or self-care (01) ==
PROVIDERS: PCP Nurse Practitioner Family; Visit Provider Physician Assistant
DX: A69.20 Lyme disease, unspecified (principal)

== ENCOUNTER → 2024-11-02 12:45 | Outpatient (BNVA) | payer MEDICARE, SELFPAY | PROVIDERS: PCP Nurse Practitioner Family; Visit Provider Physician Assistant | DX: A69.20 Lyme disease, unspecified (principal) | CPT/HCPCS: 99212 ==

== ENCOUNTER 2025-01-28 09:27 | Outpatient (AMB) | payer MEDICARE, SELFPAY ==
--- NOTE | 2025-01-28 09:34 | A.OFFPC_ITS ---
Vital Signs 01/28/25 09:38 01/28/25 09:56 Height 5 ft 9 in Weight 196 lb BMI 28.9 BP 144/66 H 130/72 Blood Pressure Location Rt brachial Lt brachial Position Sitting Sitting Respiration 16 Pulse 55 Pulse Source Pulse Oximeter Temp 97.6 F Temp Source Oral Pulse Oximetry (%) 97 Oxygen Delivery Method Room Air Intake Visit Reasons: 3 mos HTN Intake Note: patient here for 3 month follow up on HTN Sustainability Director Required: No Allergies lisinopril Allergy (Intermediate, Verified 01/28/25 09:45) caugh Penicillins Allergy (Intermediate, Verified 01/28/25 09:45) Swelling Medication List - Last Reconciled 01/28/25 by Janelle Correa CNP aspirin (Adult Aspirin Regimen) 81 mg PO DAILY 90 days atorvastatin 80 mg PO DAILY 90 days bisacodyl 20 mg (4 x 5 mg) PO ONCE 1 day isosorbide mononitrate ER 30 mg PO DAILY 90 days losartan 50 mg PO DAILY 90 days losartan 25 mg PO DAILY 90 days metoprolol tartrate 25 mg PO BID 90 days nitroglycerin 0.4 mg sublingual Q5M PRN pantoprazole 40 mg PO DAILY 90 days polyethylene glycol 3350 (Miralax) 238 grams PO ONCE Tobacco use date assessed: 01/28/25 Fall risk assessment: No Falls in past year Last assessed Fall Risk: 01/28/25 Dental Screening Dental Screen Date: 01/28/25 Did you have a dental visit in the last 12 months?: No Did you have a dental problem in the last 6 months where you did not have access to dental care?: No Was dental information given to patient?: Patient has dentist HPI HPI Comments History of Present Illness Details 79-year-old male, accompanied by his wif tacho, presents for hypertension follow-up. He admits to taking his medications as prescribed without adverse reactions. He notes that he has been making healthy lifestyle changes. He brought a log of 7 home blood pressure readings and heart rate from 12/21/2024 to 01/10/2025. His blood pressure was between 112-120/63-69. Heart rate between 49-58. He offers no complaints and denies acute symptoms at this time. He has cardiology follow-up with [facility] next month. [facility] Medical History (Updated 11/02/24 @ 13:19 by Lo Khanna PA-C) Acid reflux Left hand fracture Schatzki's ring Prostate cancer History of gastroesophageal reflux (GERD) Arthritis Heart disease Stroke (cerebrum) High cholesterol High blood pressure Surgical History H/O cataract removal with insertion of prosthetic lens History of prostatectomy History of carotid endarterectomy Family History Brother Asthma Father High blood pressure FH: mental illness Parkinson disease Mother High blood pressure High cholesterol Diabetes Cardiovascular disease Paternal Grandfather Cardiovascular disease Social History Housing: House Patient Tobacco Use Status: Never used Tobacco e-Cigarette/Vaping Use: Never Used Second Hand Smoke Exposure: No service: No Current occupational status: retired Current occupational exposures/hazards: No Cognitive needs: No Hearing needs: No Vision needs: Yes Questionnaire Thrive Questionnaire Date Thrive assessed: 07/24/24 I am a: Patient What is your living situation today?: I have a steady place to live Within the past 12 months, did the food you bought not last and you didn't have the money to get more?: Sometimes True Within the past 12 months, did you worry whether your food would run out before you got money to buy more?: Never true Do you have trouble paying for medicines?: No Do you have trouble getting transportation to medical appointments?: No Do you have trouble paying your heating and electricity bill?: No Do you have trouble taking care of your child, family member or friend?: No Do you have trouble with day-to-day activities such as bathing, preparing meals, shopping, managing finances, etc.?: No Are you currently unemployed and looking for a job?: No Are you interested in more education?: Yes Please select the resources that you would like help with: None Currently or been in a relationship where the following occur: No concerns reported THRIVE Score: 1 MARCELINO-7 AMB Questionnaire MARCELINO-7 Date MARCELINO - 7 assessed: 07/31/24 Source: Developed by Drs. Erasmo Oliva, Kristi Herrera, Brice Banks and colleagues, with an educational wendy from [employer]. Review of Systems Const Details: Const Denies chills, Denies fatigue, Denies fever(s), Denies headache(s) and Denies weakness ENT Denies dizziness and Denies headache(s) Card Denies chest pain, Denies lightheadedness, Denies dyspnea and Denies other (Palpitations) Resp Denies cough, Denies dyspnea, Denies wheezing and Denies other ( shortness of breath) GI Denies abdominal pain, Denies melena, Denies hematochezia, Denies change in bowel habits, Denies dyspepsia and Denies nausea Denies hematuria and Denies dysuria Musc Denies abnormal gait, Denies myalgias, Denies arthralgias, Denies numbness and Denies tingling Skin/Breast Denies rash, Denies unusual bruising and Denies wounds Neuro Denies abnormal gait, Denies dizziness, Denies headache(s), Denies memory loss, Denies numbness, Denies Sensory deficit (Neuro), Denies tingling and Denies weakness Psych Denies anxiety, Denies depression, Denies memory loss Endo Denies cold intolerance, Denies fatigue, Denies heat intolerance, Denies polydipsia and Denies polyuria Aller/Immun Denies wheezing Physical exam (Primary Care) Vital Signs: Last Vital Signs Temp 97.6 F 01/28/25 09:38 Pulse 55 01/28/25 09:38 Resp 16 01/28/25 09:38 BP 144/66 H 01/28/25 09:38 Pulse Ox 97 01/28/25 09:38 Oxygen Delivery Method Room Air 01/28/25 09:38 BMI result Body Mass Index 28.9 Tobacco/Smoking Status: Tobacco use Status Tobacco use date assessed 01/28/25 01/28/25 09:42 Patient Tobacco Use Status Never used Tobacco 01/28/25 09:35 e-Cigarette/Vaping Use Never Used 01/28/25 09:35 Thrive Assessment: Date of Thrive Assessment Date Thrive assessed 07/24/24 01/28/25 09:35 Currently or been in a relationship where the following occur: No concerns reported Const Other: General: no acute distress and well developed Nutritional Appearance: well nourished Orientation/consciousness: patient oriented x3 HENMT Head: Yes normocephalic and Yes atraumatic Eyes General: appearance normal, both eyes and all related structures Pupils: Equal, round and reactive pupils present EOM: EOMs intact bilaterally Resp Effort & Inspection: normal respiratory effort Auscultation: clear to auscultation bilaterally Cardio Rate: regular rate Rhythm: regular rhythm Heart sounds: S1 normal heart sound present, S2 normal heart sound present, no gallops, no murmurs and no rubs GI Palpation (GI): No Abdominal aortic bruit present, Soft to palpation, nontender, No hepatosplenomegaly present and No Rebound tenderness present Auscultation: normal bowel sounds General: Yes no CVA tenderness Back/Spine/Pelvis Back: no CVA tenderness Cervical Spine: cervical ROM normal and No Cervical spine tenderness Thoracic/Lumbar Spine: thoraco-lumbar ROM normal, No pain with thoraco-lumbar ROM, No thoracic spinal tenderness and No lumbar spinal tenderness Extrem General: Yes normal to inspection, No edema and No calf tenderness Skin General: warm and dry. Normal skin color. Normal skin turgor Neuro General: patient oriented x3, gait normal and no focal neuro deficit Cranial nerves: Yes Equal, round and reactive pupils present Cognition (Neuro): normal cognition Gait exam (Neuro): Normal gait present Sensory Exam: No Sensory deficit (Neuro) Psych Appearance: grossly normal Affect: normal affect Attitude: cooperative Thought process: Normal thought process present Coding Level of Care Code Est Pt Level 3 (54138) Diagnoses High blood pressure I10 Assessment & Plan Assessment & Plan (1) High blood pressure: Code(s): I10 - Essential (primary) hypertension Category: Medical Plan: Resting blood pressure is 130/72, slightly above goal of less than 130/80. His home blood pressure readings are within goal. Continue current treatment regimen. Follow-up in 3 months or sooner with symptoms or concerns. Verbalized understanding and agreed with the plan.
[2025-01-28 09:38] VITALS: BP 144/66; PULSE 55; RESP 16; TEMP 36.4; O2SAT 97; BMI 28.9
[2025-01-28 09:56] VITALS: BP 130/72
== END 2025-01-28 10:01 | disposition home or self-care (01) ==
LOC: HO.HMCFM 09:28
PROVIDERS: PCP Nurse Practitioner Family; Visit Provider Nurse Practitioner Family
DX: I10 Essential (primary) hypertension (principal)

== ENCOUNTER → 2025-01-28 09:27 | Outpatient (BNVA) | payer MEDICARE, SELFPAY | PROVIDERS: PCP Nurse Practitioner Family; Visit Provider Nurse Practitioner Family | DX: I10 Essential (primary) hypertension (principal) | CPT/HCPCS: 99212 ==